=== PATIENT | female | born 1990 | race American Indian/Alaskan Native ===

== ENCOUNTER 2017-01-25 13:31 | Emergency (ER) | payer OTHER ==
[2017-01-25 13:38] VITALS: BMI 21.5
[2017-01-25 13:44] VITALS: BP 148/109; TEMP 99
[2017-01-25] MEDS ORDERED: Sodium Chloride 0.9% 1,000 ML IV STA (14:07)
--- NOTE | 2017-01-25 14:19 | ED PDOC ---
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 Pt has noticeable swelling to her left jaw and when provider asked about recent dental work, pt reports the swelling is always present and states she has "cracked teeth" due to her lupus. Pt is refusing to provide further information until she is given pain medication; [place] [facility] dat[facility]se was consulted and pt's last narcotics prescription was in July. Pt additionally reports she delivered a baby in September 2016 who has since then passed; states she has not seen a doctor since the delivery. Pt refuses to consent for a physical exam. Past Medical History Reviewed: Historical Data, Nursing Documentation, Vital Signs Vital Signs: Last Vital Signs Temp 99 F 01/25/17 13:40 Pulse Resp BP 148/109 H 01/25/17 13:40 Pulse Ox - Medical History PMH: Anemia, Bronchitis, HTN - Surgical History Surgical History: No Surg Hx - Family History Family History: States: Unknown Family Hx - Home Medications Home Medications: Ambulatory Orders Medication Instructions Recorded Oxycodone HCl/Acetaminophen 1 tab PO Q6H PRN #5 tab 02/17/16 [Percocet 325 mg-5 mg] Clindamycin [Cleocin] 300 mg PO BID #14 cap 01/25/17 traMADol [Ultram] 50 mg PO Q4 #10 tab 01/25/17 - Allergies Allergies/Adverse Reactions: Allergies Allergy/AdvReac Type Severity Reaction Status Date / Time ibuprofen [From Motrin] Allergy PAIN Verified 02/17/16 12:48 Iodinated Contrast- Oral and Allergy ITCHING Verified 02/17/16 12:48 IV Dye Review of Systems ROS Statement: Except As Marked, All Systems Reviewed And Found Negative Constitutional: Positive for: Malaise (generalized bodyaches) ENT: Positive for: Mouth Swelling (left sided jaw swelling) Physical Exam - Reviewed Nursing Documentation Reviewed: Yes Vital Signs Reviewed: Yes - Physical Exam Appears: Positive for: Uncomfortable ENT: Positive for: Other ((+) large amount of edema noted over left mandible) Comments: Pt deferred physical exam until she gets treated for pain. - Laboratory Results Result Diagrams: 01/25/17 14:20 01/25/17 14:20 Medical Decision Making Medical Decision Making: IV access established and treatment initiated with IV Morphine and Zofran WBC 7.1 UDS (+) Opiates, Amphetamines and Alcohol repeat BP on re-eval: 138/88 CT Impression: There are induration and flow presumed phlegmon formation on involving the last 2 left second and 3rd maxillary molar teeth with significant left-sided facial cellulitis . Note that the possibility of additional carious teeth involving the left lateral incisor and 2nd cuspid tooth as well right-sided 2nd cuspid and bicuspid contributing to anterior facial swelling not excluded. Findings discussed with emergency room MARYSOL Stafford approximately 5:26 p.m. with written down and read back verification. Pt educated on results and demonstrated full understanding. Started on IV Clinda. Advised to follow up [facility] dentist, dental clinics in area provided to Pt Given RX for Clinda to continue at home return to ED with any concerns Disposition - Clinical Impression Clinical Impression: Dental abscess - Patient ED Disposition Is Patient to be Admitted: No - Disposition Disposition: Routine/Home Disposition Time: 18:56 Condition: STABLE Prescriptions: Clindamycin [Cleocin] 300 mg PO BID #14 cap traMADol [Ultram] 50 mg PO Q4 #10 tab Instructions: Dental Abscess (ED)
[2017-01-25] MEDS ORDERED: Sodium Chloride 0.9% 50 ML IV ONE (14:58)
[2017-01-25] MEDS ORDERED: Iohexol 300 100 ML IJ ONE (14:58)
[2017-01-25 15:04] LABS: BASO % 0.2 % (0.0-2.0); EOS % 0.1 % (0.0-4.0); LYMPH # 2.1 K/uL (1.0-4.3); LYMPH % 29.2 % (20.0-40.0); MEAN CELL VOLUME 87.4 fl (81.0-99.0); MEAN CORPUSCULAR HEMOGLOBIN 29.4 pg (27.0-31.0); MEAN CORPUSCULAR HGB CONC 33.6 g/dL (33.0-37.0); MEAN PLATELET VOLUME 8.1 fl (7.2-11.7); MONO # 0.4 K/uL (0.0-0.8); MONO % 5.4 % (0.0-10.0); NEUT # 4.6 K/uL (1.8-7.0); NEUT % 65.1 % (50.0-75.0); RBC 3.75 Mil/uL (3.80-5.20); RED CELL DISTRIBUTION WIDTH 14.1 % (11.5-14.5); WHITE BLOOD COUNT 7.1 K/uL (4.8-10.8)
[2017-01-25] MEDS ORDERED: Oxycodone/Acetaminophen 5/325 mg Tab ONE (15:07)
[2017-01-25 15:11] LABS: ALB/GLOB RATIO 1.4 (1.0-2.1); ALBUMIN 4.5 g/dL (3.5-5.0); ALT/SGPT 26 U/L (9-52); AST/SGOT 24 U/L (14-36); BLOOD UREA NITROGEN 8 mg/dl (7-17); GFR AFRICAN-AMERICAN > 60; GFR NON-AFRICAN AMERICAN > 60
[2017-01-25] MEDS ORDERED: Oxycodone/Acetaminophen 5/325 mg Tab PO STA (15:11)
[2017-01-25] MEDS ORDERED: DiphenhydrAMINE 50 mg/ml Inj ONE ×2 (15:20→16:44)
[2017-01-25] MEDS ORDERED: DiphenhydrAMINE 50 mg/ml Inj IVP STA ×2 (15:20→16:47)
[2017-01-25 16:21] LABS: SQUAMOUS EPITHIAL 6 /hpf (0-5); URINE BACTERIA RARE (<OCC); URINE BILIRUBIN NEGATIVE (NEGATIVE); URINE BLOOD LARGE (NEGATIVE); URINE CLARITY SLIGHTY-CLOUDY (Clear); URINE COLOR YELLOW (YELLOW); URINE GLUCOSE (UA) NEG (Normal); URINE LEUKOCYTE ESTERASE TRACE Leu/uL (Negative); URINE NITRATE NEGATIVE (NEGATIVE); URINE PROTEIN 30 mg/dL (NEGATIVE); URINE UROBILINOGEN 0.2-1.0 mg/dL (0.2-1.0)
[2017-01-25 16:32] LABS: BARBITURATES, UR NEGATIVE (NEGATIVE); BENZODIAZEPINES, UR NEGATIVE (NEGATIVE); OPIATES, UR POSITIVE (NEGATIVE); PHENCYCLIDINE, UR NEGATIVE (NEGATIVE)
[2017-01-25] MEDS ORDERED: Clindamycin 600 MG in Sodium Chloride 0.9% 100 ML IVPB STA (17:26)
--- NOTE | 2017-01-25 17:29 | CT ---
PROCEDURE: CT scan maxillofacial skeleton 01/25/2017 HISTORY: Rule out dental abscess COMPARISON: No prior TECHNIQUE: Contiguous helical/ transaxial CT images of the maxillofacial bones were obtained following administration of IV contrast. Coronal and sagittal reformats were generated. Intravenous contrast Dose: 75 Omnipaque 300 Radiation dose: Total exam DLP = 737.3 mGy-cm. FINDINGS: Findings: The current study reveals numerous carious teeth. There is a localized area of induration and/or phlegmon formation along the buccal surface adjacent to the last 2nd and 3rd molars of which demonstrate significant at carious changes. Findings are consistent with phlegmon and overlying cellulitis which extends into the soft tissues of the left cheek. There is inflammatory changes seen over the left mandible and anterior maxilla extending anteriorly and inferiorly into the submandibular region and over the symphysis. Note that the possibility of additional carious teeth involving the left lateral incisor and 2nd cuspid tooth as well right-sided 2nd cuspid and bicuspid contributing to anterior facial swelling not excluded. No definitive drainable abscess seen at this time. The visualized paranasal sinuses well-developed and currently well-aerated. There are no fluid levels seen to suggest acute sinusitis . No significant mucoperiosteal inflammatory changes. Orbits and contents unremarkable. Globes intact and lenses appropriately located. There are no retrobulbar masses or collections. Extraocular musculature and optic nerves also unremarkable. Impression: There are induration and flow presumed phlegmon formation on involving the last 2 left second and 3rd maxillary molar teeth with significant left-sided facial cellulitis . Note that the possibility of additional carious teeth involving the left lateral incisor and 2nd cuspid tooth as well right-sided 2nd cuspid and bicuspid contributing to anterior facial swelling not excluded. Findings discussed with emergency room MARYSOL Stafford approximately 5:26 p.m. with written down and read back verification.
== END 2017-01-25 20:00 | disposition home or self-care (01) ==
LOC: H.ER 13:31
DX: R10.9 Unspecified abdominal pain (principal); R52 Pain, unspecified; K12.2 Cellulitis and abscess of mouth

== ENCOUNTER 2017-04-15 21:44 | Emergency (ER) | payer OTHER ==
[2017-04-15 21:45] VITALS: BMI 21.5
[2017-04-15 21:51] VITALS: BP 191/136; PULSE 98; RESP 16; TEMP 97.8; O2SAT 98
[2017-04-15] MEDS ORDERED: Oxycodone/Acetaminophen 5/325 mg Tab PO STA (22:18)
[2017-04-15] MEDS ORDERED: Oxycodone/Acetaminophen 5/325 mg Tab ONE (22:33)
[2017-04-15 22:38] LABS: BASO # 0.1 K/uL (0.0-0.2); BASO % 0.8 % (0.0-2.0); EOS % 0.3 % (0.0-4.0); HEMATOCRIT 36.1 % (34.0-47.0); LYMPH # 3.1 K/uL (1.0-4.3); LYMPH % 45.4 % (20.0-40.0); MEAN CELL VOLUME 87.3 fl (81.0-99.0); MEAN CORPUSCULAR HEMOGLOBIN 28.9 pg (27.0-31.0); MEAN CORPUSCULAR HGB CONC 33.1 g/dL (33.0-37.0); MEAN PLATELET VOLUME 8.3 fl (7.2-11.7); MONO # 0.6 K/uL (0.0-0.8); MONO % 8.2 % (0.0-10.0); NEUT # 3.1 K/uL (1.8-7.0); NEUT % 45.3 % (50.0-75.0); NRBC % 0.1 % (0.0-0.0); RED CELL DISTRIBUTION WIDTH 13.8 % (11.5-14.5); WHITE BLOOD COUNT 6.8 K/uL (4.8-10.8)
--- NOTE | 2017-04-15 22:46 | ED PDOC ---
HPI: General Adult Time Seen by Provider: 04/15/17 21:55 Chief Complaint (Nursing): Weakness/Neurological Deficit Chief Complaint (Provider): Diffuse body pain History Per: Patient History/Exam Limitations: no limitations Onset/Duration Of Symptoms: Days (x 2-3) Current Symptoms Are (Timing): Still Present Additional Complaint(s): Francisco is a 27 y/o female with a history of Lupus, presenting to the ER complaining of diffuse myalgias for the past 2-3 days, worsened today. Patient states she was diagnosed with Lupus 6 months ago but has yet to start any disease modifying agents. States she has been unable to see a mica plate layer hand. Denies any fever, cough, nausea, vomiting, or diarrhea. PMD: [facility] Past Medical History Reviewed: Historical Data, Nursing Documentation, Vital Signs Vital Signs: Last Vital Signs Temp 97.8 F 04/15/17 21:48 Pulse 98 H 04/15/17 21:48 Resp 16 04/15/17 21:48 BP 191/136 H 04/15/17 21:48 Pulse Ox 98 04/16/17 00:00 - Medical History PMH: Anemia, Bronchitis, HTN Other PMH: Lupus - Family History Family History: States: Unknown Family Hx - Social History Current smoker - smoking cessation education provided: No Alcohol: None Drugs: Denies - Home Medications Home Medications: Ambulatory Orders Medication Instructions Recorded Oxycodone HCl/Acetaminophen 1 tab PO Q6H PRN #5 tab 02/17/16 [Percocet 325 mg-5 mg] Clindamycin [Cleocin] 300 mg PO BID #14 cap 01/25/17 Ondansetron ODT [Zofran ODT] 4 mg PO Q6 PRN #10 odt 01/25/17 oxyCODONE/Acetaminophen [Percocet 1 ea PO Q6 PRN #2 tab 01/25/17 5/325 mg Tab] traMADol [Ultram] 50 mg PO Q4 #10 tab 01/25/17 traMADol [Ultram] 50 mg PO Q6 PRN #16 tab 04/15/17 Clindamycin [Cleocin] 300 mg PO BID #28 cap 04/16/17 - Allergies Allergies/Adverse Reactions: Allergies Allergy/AdvReac Type Severity Reaction Status Date / Time ibuprofen [From Motrin] Allergy PAIN Verified 04/15/17 21:47 Iodinated Contrast- Oral and Allergy ITCHING Verified 04/15/17 21:47 IV Dye Review of Systems ROS Statement: Except As Marked, All Systems Reviewed And Found Negative Constitutional: Negative for: Fever Respiratory: Negative for: Cough Gastrointestinal: Negative for: Nausea, Vomiting, Diarrhea Musculoskeletal: Positive for: Other (Diffuse myalgias) Physical Exam - Reviewed Nursing Documentation Reviewed: Yes Vital Signs Reviewed: Yes - Physical Exam Appears: Positive for: Non-toxic, No Acute Distress, Uncomfortable Head Exam: Positive for: ATRAUMATIC, NORMAL INSPECTION, NORMOCEPHALIC Skin: Positive for: Normal Color, Warm, Dry Eye Exam: Positive for: EOMI, Normal appearance, PERRL ENT: Positive for: Normal ENT Inspection, Other (Very poor dentition. History of dental caries per patient) Neck: Positive for: Normal, Painless ROM, Supple Cardiovascular/Chest: Positive for: Regular Rate, Rhythm. Negative for: Murmur Respiratory: Positive for: Normal Breath Sounds. Negative for: Respiratory Distress Gastrointestinal/Abdominal: Positive for: Normal Exam, Soft. Negative for: Tenderness Back: Positive for: Normal Inspection. Negative for: L CVA Tenderness, R CVA Tenderness, Vertebral Tenderness Extremity: Positive for: Normal ROM, Capillary Refill (< 2 sec). Negative for: Tenderness, Pedal Edema, Deformity Neurologic/Psych: Positive for: Alert, Oriented. Negative for: Motor/Sensory Deficits - Laboratory Results Result Diagrams: 04/15/17 22:34 04/15/17 22:34 - ECG O2 Sat by Pulse Oximetry: 98 (RA) Pulse Ox Interpretation: Normal Medical Decision Making Medical Decision Making: Time: 22:17 Initial Impression: 27 year old female with diffuse myalgias in setting of known Lupus Initial Plan: --Ordered labs and EKG --Patient given IV Toradol (10 mg) and PO Percocet (1 tab) --Pending reevaluation --Patient was informed that she will not receive repeat dosages of narcotics. She was also informed of this facility's narcotic policy. Time: 22:52 --Sodium chloride 1000 ml IV at 1000 mls/hr --Added ESR to lab orders Time: 23:30 --Labs reviewed and revealed no clinically significant abnormalities. --Patient informed of benign nature of lab results as well as need for follow up with mica plate layer hand for possible disease modifying agents related to her Lupus. --Patient is medically stable and will be discharged home with Rx for Cleocin and Ultram. Clinical Impression: Muskuloskeletal pain, Dental caries, Lupus by history Scribe Attestation: Documented by Cata Reddy, acting as a scribe for Mark Garcia MD Provider Scribe Attestation: All medical record entries made by the Scribe were at my direction and personally dictated by me. I have reviewed the chart and agree that the record accurately reflects my personal performance of the history, physical exam, medical decision making, and the department course for this patient. I have also personally directed, reviewed, and agree with the discharge instructions and disposition. Disposition - Clinical Impression Clinical Impression: Musculoskeletal pain, Lupus - Patient ED Disposition Is Patient to be Admitted: No Counseled Patient/Family Regarding: Diagnosis, Need For Followup, Rx Given - Disposition Disposition: Routine/Home Disposition Time: 23:30 Condition: STABLE Prescriptions: Clindamycin [Cleocin] 300 mg PO BID #28 cap traMADol [Ultram] 50 mg PO Q6 PRN #16 tab PRN Reason: body aches Instructions: Autoimmune Disease (ED) Forms: [employer] (Kiswahili)
[2017-04-15 22:52] LABS: ALB/GLOB RATIO 1.3 (1.0-2.1); ALCOHOL SERUM < 10 mg/dl (0-10); ALKALINE PHOSPHATASE 67 U/L (38-126); ALT/SGPT 23 U/L (9-52); AST/SGOT 30 U/L (14-36); BILIRUBIN,TOTAL 1.1 mg/dl (0.2-1.3); BLOOD UREA NITROGEN 16 mg/dl (7-17); CALCIUM 9.5 mg/dL (8.4-10.2); CARBON DIOXIDE 23 mmol/L (22-30); CHLORIDE 107 mmol/L (98-107); GFR AFRICAN-AMERICAN > 60; GLUCOSE,RANDOM 94 mg/dL (65-105); POTASSIUM 3.5 MMOL/L (3.6-5.0); SODIUM 142 mmol/l (132-148); TOTAL PROTEIN 8.6 G/DL (6.3-8.2)
[2017-04-15] MEDS ORDERED: Sodium Chloride 0.9% 1,000 ML IV STA (22:52)
[2017-04-15 23:13] LABS: RBC URINE 10 /hpf (0-3); URINE BILIRUBIN NEGATIVE (NEGATIVE); URINE BLOOD LARGE (NEGATIVE); URINE COLOR YELLOW (YELLOW); URINE GLUCOSE (UA) NEG (Normal); URINE KETONE TRACE mg/dL (NEGATIVE); URINE LEUKOCYTE ESTERASE NEG Leu/uL (Negative); URINE PROTEIN 30 mg/dL (NEGATIVE); URINE UROBILINOGEN 0.2-1.0 mg/dL (0.2-1.0); WBC URINE 2 /hpf (0-5)
== END 2017-04-16 00:36 | disposition home or self-care (01) ==
LOC: H.ER 21:44
DX: M79.1 Myalgia (principal); M32.9 Systemic lupus erythematosus, unspecified; I10 Essential (primary) hypertension
CPT/HCPCS: 80053; 80320; 80324; 80345; 80346; 80349; 80353; 80358; 80361; 81003; 81025; 82550; 83992; 85025; 85651; 96374; 99284; J1885; J7040

== ENCOUNTER 2017-06-14 18:45 | Emergency (ER) | payer OTHER ==
[2017-06-14 18:45] VITALS: BMI 21.5
[2017-06-14 18:58] VITALS: BP 153/111; PULSE 87; RESP 16; TEMP 96.4; O2SAT 96
--- NOTE | 2017-06-14 20:03 | ED PDOC ---
HPI: Abdomen Time Seen by Provider: 06/14/17 19:00 Chief Complaint (Nursing): Abdominal Pain Chief Complaint (Provider): Right Flank and Right Upper Abdominal Pain History Per: Patient History/Exam Limitations: no limitations Onset/Duration Of Symptoms: Days (x4 days) Outside of [place] travel?: No Current Symptoms Are (Timing): Still Present Additional Complaint(s): Francisco Eason, a 27 year old female, with a past medical history lupus, asthma , anemia and hypertension presents to the ED complaining of right flank and right upper abdominal pain x4 days. The patient reports that her symptoms are associated with diffuse myalgias, generalized malaise, fatigue and chills. She states t hat her current symptoms are consistent with previous episodes of lupus exacerbation although the abdominal pain is new. Patient also notes some dysuria, frequency, cough productive of phlegm and gum pain that is due to severe gingival disease. She reports that she has not taken anything for pain. The patient also states that she has not seen a manager hospice due to insurance issues. Patient has been to ER for similar complaints due to her lupus exacerbation PMD: Dr. Hong Kingsley Abnormal Vaginal Bleeding: No Past Medical History Reviewed: Historical Data, Nursing Documentation, Vital Signs Vital Signs: Last Vital Signs Temp 96.4 F L 06/14/17 18:52 Pulse 87 06/14/17 18:52 Resp 16 06/14/17 18:52 BP 153/111 H 06/14/17 18:52 Pulse Ox 96 06/14/17 20:23 - Medical History PMH: Anemia, Bronchitis, HTN Other PMH: lupus - Surgical History Other surgeries: abscess in right upper back - Family History Family History: States: Hypertension - Social History Current smoker - smoking cessation education provided: Yes (on rare occasions) Ex-Smoker (has not smoked in the last 12 months): No Alcohol: None Drugs: Cannabis - Home Medications Home Medications: Ambulatory Orders Medication Instructions Recorded Oxycodone HCl/Acetaminophen 1 tab PO Q6H PRN #5 tab 02/17/16 [Percocet 325 mg-5 mg] Clindamycin [Cleocin] 300 mg PO BID #14 cap 01/25/17 Ondansetron ODT [Zofran ODT] 4 mg PO Q6 PRN #10 odt 01/25/17 oxyCODONE/Acetaminophen [Percocet 1 ea PO Q6 PRN #2 tab 01/25/17 5/325 mg Tab] traMADol [Ultram] 50 mg PO Q4 #10 tab 01/25/17 traMADol [Ultram] 50 mg PO Q6 PRN #16 tab 04/15/17 Clindamycin [Cleocin] 300 mg PO BID #28 cap 04/16/17 - Allergies Allergies/Adverse Reactions: Allergies Allergy/AdvReac Type Severity Reaction Status Date / Time ibuprofen [From Motrin] Allergy PAIN Verified 04/15/17 21:47 Iodinated Contrast- Oral and Allergy ITCHING Verified 04/15/17 21:47 IV Dye Review of Systems ROS Statement: Except As Marked, All Systems Reviewed And Found Negative (and as per HPI) Constitutional: Positive for: Chills, Malaise, Other (fatigue; diffuse myalgia) Gastrointestinal: Positive for: Abdominal Pain (right upper abdominal pain) Musculoskeletal: Positive for: Back Pain (right flank pain) Physical Exam - Reviewed Nursing Documentation Reviewed: Yes Vital Signs Reviewed: Yes - Physical Exam Appears: Positive for: Non-toxic, No Acute Distress Head Exam: Positive for: ATRAUMATIC, NORMOCEPHALIC Skin: Positive for: Warm, Dry Eye Exam: Positive for: EOMI, PERRL ENT: Negative for: Pharyngeal Erythema, Tonsillar Exudate Neck: Positive for: Painless ROM, Supple Cardiovascular/Chest: Positive for: Regular Rate, Rhythm, Chest Non Tender. Negative for: Murmur Respiratory: Positive for: Normal Breath Sounds. Negative for: Wheezing, Respiratory Distress Gastrointestinal/Abdominal: Positive for: Soft, Tenderness (RUQ). Negative for : Mass, Distended, Guarding, Rebound Back: Positive for: R CVA Tenderness. Negative for: Vertebral Tenderness Extremity: Positive for: Normal ROM. Negative for: Deformity Lymphatic: Negative for: Adenopathy Neurologic/Psych: Positive for: Alert. Negative for: Motor/Sensory Deficits - Laboratory Results Result Diagrams: 06/14/17 19:50 06/14/17 19:50 - ECG O2 Sat by Pulse Oximetry: 96 (RA) Pulse Ox Interpretation: Normal Medical Decision Making Medical Decision Makin Initial Plan 27 y/o female presenting with right flank pain Differentials including and not limited too: Pyelonephritis, Cholelithiasis, Gallbaladder disease, Renal Colic, Musculoskeletal pain, Lupus exacerbation Initial Plan: * CMP * Drug screen * Lactic Acid- plasma * Lipase * Magnesium * Phosphorous * Upreg * Udip * CBC * Chest x-ray * Tylenol 975mg PO * Blood Culture * Urine Culture * Reevaluation Reviewed patient's narcotic prescriptions on [facility] database patient was prescribed percocet on June 11 by dentist and also May 08 by another dentist as well as tramadol after last visit here and 4 other percocet prescription this year by various medical providers. 8p Pt expressed anger about being given tylenol and tramadol. Explained to pt pain management policy and reviewed previous narcotic prescription with patient. Advised that she would not be getting any other medications unless deemed necessary by ER workup. 855p Informed by RN that pt walked out. She had pulled her own IV out. No US performed and labs with no emergently significant abnormalities. _ Scribe Attestation Documented by Iqra Bob acting as a scribe for Talia Fontana MD. Provider Attestation All medical record entries made by the Scribe were at my direction and personally dictated by me. I have reviewed the chart and agree that the record accurately reflects my personal performance of the history, physical exam, medical decision making, and the department course for this patient. I have also personally directed, reviewed, and agree with the discharge instructions and disposition. Disposition - Clinical Impression Clinical Impression: Abdominal pain - Disposition Disposition: Eloped Disposition Time: 20:55 Condition: UNKNOWN
[2017-06-14 20:05] LABS: ALKALINE PHOSPHATASE 68 U/L (38-126); ALT/SGPT 26 U/L (9-52); AST/SGOT 24 U/L (14-36); BILIRUBIN,TOTAL 0.5 mg/dl (0.2-1.3); BLOOD UREA NITROGEN 13 mg/dl (7-17); CALCIUM 8.9 mg/dL (8.4-10.2); CARBON DIOXIDE 25 mmol/L (22-30); CHLORIDE 108 mmol/L (98-107); GFR AFRICAN-AMERICAN > 60; GLUCOSE,RANDOM 103 mg/dL (65-105); LIPASE 20 U/L (23-300); PHOSPHOROUS 3.4 mg/dl (2.5-4.5); POTASSIUM 3.6 MMOL/L (3.6-5.0); SODIUM 145 mmol/l (132-148); TOTAL PROTEIN 8.4 G/DL (6.3-8.2)
[2017-06-14 20:15] LABS: ALB/GLOB RATIO 1.2 (1.0-2.1)
[2017-06-14 20:17] LABS: RBC URINE 6 /hpf (0-3); URINE BACTERIA RARE (<OCC); URINE BILIRUBIN NEGATIVE (NEGATIVE); URINE BLOOD NEGATIVE (NEGATIVE); URINE COLOR YELLOW (YELLOW); URINE GLUCOSE (UA) NEG (Normal); URINE KETONE NEGATIVE (NEGATIVE); URINE LEUKOCYTE ESTERASE MOD Leu/uL (Negative); URINE PROTEIN 100 mg/dL (NEGATIVE); URINE UROBILINOGEN 0.2-1.0 mg/dL (0.2-1.0); WBC URINE 8 /hpf (0-5)
[2017-06-14 20:30] LABS: BASO % 0.2 % (0.0-2.0); EOS % 0.3 % (0.0-4.0); HEMATOCRIT 36.1 % (34.0-47.0); LYMPH # 2.2 K/uL (1.0-4.3); LYMPH % 38.7 % (20.0-40.0); MEAN CELL VOLUME 89.2 fl (81.0-99.0); MEAN CORPUSCULAR HEMOGLOBIN 29.3 pg (27.0-31.0); MEAN CORPUSCULAR HGB CONC 32.9 g/dL (33.0-37.0); MEAN PLATELET VOLUME 8.5 fl (7.2-11.7); MONO # 0.4 K/uL (0.0-0.8); MONO % 7.1 % (0.0-10.0); NEUT # 3.1 K/uL (1.8-7.0); NEUT % 53.7 % (50.0-75.0); NRBC % 0.1 % (0.0-0.0); RED CELL DISTRIBUTION WIDTH 13.7 % (11.5-14.5); WHITE BLOOD COUNT 5.7 K/uL (4.8-10.8)
== END 2017-06-14 20:51 | disposition short-term general hospital (02) ==
LOC: H.ER 18:45
DX: R10.9 Unspecified abdominal pain (principal); I10 Essential (primary) hypertension; F17.210 Nicotine dependence, cigarettes, uncomplicated

== ENCOUNTER 2017-11-22 17:48 | Emergency (ER) | payer OTHER ==
[2017-11-22 17:48] VITALS: BMI 21.5
[2017-11-22 17:55] VITALS: BP 109/72; PULSE 64; RESP 18; TEMP 97.8; O2SAT 97
[2017-11-22] MEDS ORDERED: Sodium Chloride 0.9% 1,000 ML IV STA (18:34)
[2017-11-22 18:52] LABS: BASO % 0.6 % (0.0-2.0); EOS % 0.5 % (0.0-4.0); HEMOGLOBIN 12.8 g/dL (12.0-16.0); LYMPH # 2.5 K/uL (1.0-4.3); LYMPH % 63.8 % (20.0-40.0); MEAN CORPUSCULAR HEMOGLOBIN 30.3 pg (27.0-31.0); MEAN PLATELET VOLUME 8.3 fl (7.2-11.7); MONO # 0.3 K/uL (0.0-0.8); MONO % 7.7 % (0.0-10.0); NEUT # 1.1 K/uL (1.8-7.0); NEUT % 27.4 % (50.0-75.0); NRBC % 0.1 % (0.0-0.0); RBC 4.22 Mil/uL (3.80-5.20); RED CELL DISTRIBUTION WIDTH 13.8 % (11.5-14.5); WHITE BLOOD COUNT 3.9 K/uL (4.8-10.8)
--- NOTE | 2017-11-22 18:52 | ED PDOC ---
HPI: General Adult Time Seen by Provider: 11/22/17 18:15 Chief Complaint (Nursing): Weakness/Neurological Deficit Chief Complaint (Provider): Body Aches History Per: Patient History/Exam Limitations: no limitations Onset/Duration Of Symptoms: Days (x2) Have you had recent travel within the past 21 days to any of the following countries: [place], [place], [place] or [place]?: No Current Symptoms Are (Timing): Still Present Severity: None Additional Complaint(s): 27 year old female with a past medical history of lupus presents to the emergency department to be evaluated for body aches x2 days. The patient reports that this is the same feeling she experiences when her lupus flares. She states that she has taken no medications for pain. In addition, she states that she vomited a few times and also feels weak. Denies fever, chest pain, difficulty breathing, drug/alcohol use. Patient reports that she is supposed to be taking medications for her lupus but she is currently not taking anything. Of note: patient during interview requested pain medication and agreed to give urine but does not want to give blood work. PMD: FAMILY PROVIDER,NO Past Medical History Reviewed: Historical Data, Nursing Documentation, Vital Signs Vital Signs: Last Vital Signs Temp 97.8 F 11/22/17 17:53 Pulse 64 11/22/17 17:53 Resp 18 11/22/17 17:53 BP 109/72 11/22/17 17:53 Pulse Ox 97 11/23/17 05:17 - Medical History PMH: Anemia, Bronchitis, HTN Other PMH: Lupus - Surgical History Surgical History: No Surg Hx - Family History Family History: States: Unknown Family Hx, Hypertension - Home Medications Home Medications: Ambulatory Orders Medication Instructions Recorded Oxycodone HCl/Acetaminophen 1 tab PO Q6H PRN #5 tab 02/17/16 [Percocet 325 mg-5 mg] Clindamycin [Cleocin] 300 mg PO BID #14 cap 01/25/17 Ondansetron ODT [Zofran ODT] 4 mg PO Q6 PRN #10 odt 01/25/17 oxyCODONE/Acetaminophen [Percocet 1 ea PO Q6 PRN #2 tab 01/25/17 5/325 mg Tab] traMADol [Ultram] 50 mg PO Q4 #10 tab 07/02/17 traMADol [Ultram] 50 mg PO Q6 PRN #16 tab 04/15/17 Clindamycin [Cleocin] 300 mg PO BID #28 cap 04/16/17 Methylprednisolone [Medrol Dose 4 mg PO DAILY #21 mg 11/22/17 Pack (21 tabs)] Nitrofurantoin Macrocrystals 100 mg PO BID #14 cap 11/22/17 [Macrobid] - Allergies Allergies/Adverse Reactions: Allergies Allergy/AdvReac Type Severity Reaction Status Date / Time ibuprofen [From Motrin] Allergy PAIN Verified 11/22/17 17:53 Iodinated Contrast- Oral and Allergy ITCHING Verified 11/22/17 17:53 IV Dye Review of Systems ROS Statement: Except As Marked, All Systems Reviewed And Found Negative Constitutional: Positive for: Weakness, Other (body aches). Negative for: Fever Cardiovascular: Negative for: Chest Pain Respiratory: Negative for: Shortness of Breath Gastrointestinal: Positive for: Vomiting Physical Exam - Reviewed Nursing Documentation Reviewed: Yes Vital Signs Reviewed: Yes - Physical Exam Appears: Positive for: Non-toxic, No Acute Distress Head Exam: Positive for: ATRAUMATIC, NORMAL INSPECTION, NORMOCEPHALIC Skin: Positive for: Normal Color, Warm, Dry. Negative for: Rash Eye Exam: Positive for: Normal appearance, EOMI, PERRL. Negative for: Nystagmus ENT: Positive for: Other (Mucous membranes dry). Negative for: Nasal Congestion , Pharyngeal Erythema, Tonsillar Swelling Neck: Positive for: Normal, Painless ROM, Supple Cardiovascular/Chest: Positive for: Regular Rate, Rhythm, Chest Non Tender. Negative for: Tachycardia Respiratory: Positive for: Normal Breath Sounds. Negative for: Rales, Rhonchi, Wheezing, Respiratory Distress Gastrointestinal/Abdominal: Positive for: Normal Exam, Bowel Sounds, Soft. Negative for: Tenderness, Mass, Guarding, Rebound Back: Positive for: Normal Inspection. Negative for: L CVA Tenderness, R CVA Tenderness Extremity: Positive for: Normal ROM. Negative for: Tenderness, Deformity, Swelling Neurologic/Psych: Positive for: Alert, Oriented, Gait - Laboratory Results Result Diagrams: 11/22/17 18:48 11/22/17 18:48 - ECG O2 Sat by Pulse Oximetry: 97 (RA) Pulse Ox Interpretation: Normal Medical Decision Making Medical Decision Makin Initial impression 27 year old female presenting with body aches Differentials: Lupus Flare, Dehydration, Urinary Tract Infection Initial Plan: * Alcohol Serum * BMP * Drug Screen * Lipase * Upreg * Udip * CBC * ESR * NS 1000 mls IV 1000mls/hr * Tylenol 650mg PO * Ultram 50mg PO * Zofran 4mg IV * Urine culture * Reevaluation Documented by ScribenameIqra Bob acting as a scribe for Aguila Everett MD. All medical record entries made by the Scribe were at my direction and personally dictated by me. I have reviewed the chart and agree that the record accurately reflects my personal performance of the history, physical exam, medical decision making, and the department course for this patient. I have also personally directed, reviewed, and agree with the discharge instructions and disposition. Disposition - Clinical Impression Clinical Impression: UTI (urinary tract infection) - Patient ED Disposition Is Patient to be Admitted: Transfer of Care Counseled Patient/Family Regarding: Studies Performed, Diagnosis - Disposition Disposition: Transfer of Care Disposition Time: 19:00 Condition: STABLE Additional Instructions: follow up with your primary doctor in 1-2 days return to the ED with any worsening or concerning symptoms Prescriptions: Methylprednisolone [Medrol Dose Pack (21 tabs)] 4 mg PO DAILY #21 mg Nitrofurantoin Macrocrystals [Macrobid] 100 mg PO BID #14 cap Instructions: Urinary Tract Infection, Adult (DC) Patient Signed Over To: Jacques Khan
[2017-11-22 19:01] LABS: BLOOD UREA NITROGEN 18 mg/dl (7-17); CALCIUM 9.6 mg/dL (8.4-10.2); GFR AFRICAN-AMERICAN > 60; GFR NON-AFRICAN AMERICAN 54; LIPASE 24 U/L (23-300)
[2017-11-22 19:09] LABS: BARBITURATES, UR NEGATIVE (NEGATIVE); BENZODIAZEPINES, UR NEGATIVE (NEGATIVE); OPIATES, UR NEGATIVE (NEGATIVE); PHENCYCLIDINE, UR NEGATIVE (NEGATIVE)
[2017-11-22] MEDS ORDERED: cefTRIAXone (Rocephin) 1 gm Inj ONE (19:24)
--- NOTE | 2017-11-22 19:51 | ED PDOC ---
- Laboratory Results Result Diagrams: 11/22/17 18:48 11/22/17 18:48 - ECG O2 Sat by Pulse Oximetry: 97 (RA) Pulse Ox Interpretation: Normal Medical Decision Making Medical Decision Making: Patient signed out to provider at 1900 pending reevaluation. on reevaluation pt sleeping comfortably in no distress. pt tolerated po. dx uti given macrobid rx as well as medrol pack for the inflammation from the RA. Documented by Iqra Cox acting as a scribe for Jacques Khan MD. All medical record entries made by the Scribe were at my direction and personally dictated by me. I have reviewed the chart and agree that the record accurately reflects my personal performance of the history, physical exam, medical decision making, and the department course for this patient. I have also personally directed, reviewed, and agree with the discharge instructions and disposition. Disposition Counseled Patient/Family Regarding: Studies Performed, Diagnosis, Need For Followup - Clinical Impression Clinical Impression: UTI (urinary tract infection) - POA Present On Arrival: None - Disposition Disposition: Routine/Home Disposition Time: 20:45 Condition: IMPROVED Additional Instructions: follow up with your primary doctor in 1-2 days return to the ED with any worsening or concerning symptoms Prescriptions: Methylprednisolone [Medrol Dose Pack (21 tabs)] 4 mg PO DAILY #21 mg Nitrofurantoin Macrocrystals [Macrobid] 100 mg PO BID #14 cap Instructions: Urinary Tract Infection, Adult (DC) Forms: [employer] (Bermudian)
[2017-11-22] MEDS ORDERED: Potassium Chloride 20 mEq ER Tab PO ONE ×2 (20:30→20:40)
== END 2017-11-22 21:20 | disposition home or self-care (01) ==
LOC: H.ER 17:48
DX: N39.0 Urinary tract infection, site not specified (principal); M32.9 Systemic lupus erythematosus, unspecified; I10 Essential (primary) hypertension; Z88.6 Allergy status to analgesic agent
CPT/HCPCS: 80048; 80320; 80324; 80345; 80346; 80349; 80353; 80358; 80361; 81025; 83690; 83992; 85025; 85651; 87086; 87181; 96374; 96375; 99285; J0696; J2765; J2930; J7040

== ENCOUNTER 2017-11-27 14:12 | Emergency (ER) | payer OTHER ==
[2017-11-27 14:12] VITALS: BMI 21.5
[2017-11-27 14:29] VITALS: TEMP 98.4; O2SAT 99
--- NOTE | 2017-11-27 15:56 | ED PDOC ---
HPI: Back Time Seen by Provider: 11/27/17 15:24 Chief Complaint (Nursing): Back Pain Chief Complaint (Provider): Low back pain History Per: Patient History/Exam Limitations: no limitations Onset/Duration Of Symptoms: Days Current Symptoms Are (Timing): Still Present Quality Of Discomfort: Dull Additional Complaint(s): 27 yo female with history of Lupus presents with low back pain. Pt states she was given Rx of medrol and states it is not really helping. PT denies fall or trauma. Pt has no yet seen a recreation aide for lupus. Pt states she will see her PMD thursday but would like something for pain. Pt states she has taken tramadol in the past. Pt states she is taking antibiotic for UTI. Past Medical History Reviewed: Historical Data, Nursing Documentation, Vital Signs Vital Signs: Last Vital Signs Temp 98.4 F 11/27/17 14:24 Pulse 70 11/27/17 14:24 Resp 16 11/27/17 14:24 BP 138/100 H 11/27/17 14:24 Pulse Ox 99 11/27/17 14:24 - Medical History PMH: Anemia, Bronchitis, HTN - Family History Family History: States: Unknown Family Hx, Hypertension - Living Arrangements Living Arrangements: With Family - Social History Current smoker - smoking cessation education provided: No - Home Medications Home Medications: Ambulatory Orders Medication Instructions Recorded Oxycodone HCl/Acetaminophen 1 tab PO Q6H PRN #5 tab 02/17/16 [Percocet 325 mg-5 mg] Clindamycin [Cleocin] 300 mg PO BID #14 cap 01/25/17 Ondansetron ODT [Zofran ODT] 4 mg PO Q6 PRN #10 odt 01/25/17 oxyCODONE/Acetaminophen [Percocet 1 ea PO Q6 PRN #2 tab 01/25/17 5/325 mg Tab] traMADol [Ultram] 50 mg PO Q4 #10 tab 01/25/17 traMADol [Ultram] 50 mg PO Q6 PRN #16 tab 04/15/17 Clindamycin [Cleocin] 300 mg PO BID #28 cap 04/16/17 Methylprednisolone [Medrol Dose 4 mg PO DAILY #21 mg 11/22/17 Pack (21 tabs)] Nitrofurantoin Macrocrystals 100 mg PO BID #14 cap 11/22/17 [Macrobid] traMADol [Ultram] 50 mg PO Q6H PRN #5 tab 11/27/17 - Allergies Allergies/Adverse Reactions: Allergies Allergy/AdvReac Type Severity Reaction Status Date / Time ibuprofen [From Motrin] Allergy PAIN Verified 11/22/17 17:53 Iodinated Contrast- Oral and Allergy ITCHING Verified 11/22/17 17:53 IV Dye Review of Systems ROS Statement: Except As Marked, All Systems Reviewed And Found Negative Constitutional: Negative for: Fever, Chills Musculoskeletal: Positive for: Back Pain Physical Exam - Reviewed Nursing Documentation Reviewed: Yes Vital Signs Reviewed: Yes - Physical Exam Appears: Positive for: Well, Non-toxic, No Acute Distress Head Exam: Positive for: ATRAUMATIC, NORMAL INSPECTION, NORMOCEPHALIC Skin: Positive for: Normal Color, Warm, DRY Eye Exam: Positive for: Normal appearance ENT: Positive for: Normal ENT Inspection Neck: Positive for: Normal, Painless ROM Cardiovascular/Chest: Positive for: Regular Rate, Rhythm Respiratory: Positive for: Normal Breath Sounds. Negative for: Accessory Muscle Use Back: Positive for: Normal Inspection Extremity: Positive for: Normal ROM Neurologic/Psych: Positive for: Alert, Oriented - Laboratory Results Result Diagrams: 11/27/17 16:09 11/27/17 16:09 - ECG O2 Sat by Pulse Oximetry: 99 Disposition - Clinical Impression Clinical Impression: Back pain - Patient ED Disposition Is Patient to be Admitted: No Counseled Patient/Family Regarding: Diagnosis, Need For Followup, Rx Given - Disposition Disposition: Routine/Home Disposition Time: 16:50 Condition: STABLE Prescriptions: traMADol [Ultram] 50 mg PO Q6H PRN #5 tab PRN Reason: Pain Instructions: Low Back Pain (DC) Forms: [employer] (Hebrew)
[2017-11-27 16:20] LABS: BASO % 0.5 % (0.0-2.0); EOS % 0.1 % (0.0-4.0); HEMOGLOBIN 13.1 g/dL (12.0-16.0); LYMPH # 1.6 K/uL (1.0-4.3); LYMPH % 28.5 % (20.0-40.0); MEAN CELL VOLUME 89.6 fl (81.0-99.0); MEAN CORPUSCULAR HEMOGLOBIN 29.7 pg (27.0-31.0); MEAN CORPUSCULAR HGB CONC 33.1 g/dL (33.0-37.0); MEAN PLATELET VOLUME 8.7 fl (7.2-11.7); MONO # 0.2 K/uL (0.0-0.8); MONO % 2.9 % (0.0-10.0); NEUT # 3.7 K/uL (1.8-7.0); RBC 4.41 Mil/uL (3.80-5.20); RED CELL DISTRIBUTION WIDTH 13.4 % (11.5-14.5); WHITE BLOOD COUNT 5.5 K/uL (4.8-10.8)
[2017-11-27 16:25] LABS: ALB/GLOB RATIO 1.3 (1.0-2.1); ALBUMIN 4.9 g/dL (3.5-5.0); ALT/SGPT 23 U/L (9-52); AST/SGOT 22 U/L (14-36); BLOOD UREA NITROGEN 15 mg/dl (7-17); CALCIUM 9.6 mg/dL (8.4-10.2); GFR AFRICAN-AMERICAN > 60; GFR NON-AFRICAN AMERICAN > 60; SQUAMOUS EPITHIAL 9 /hpf (0-5); URINE BILIRUBIN NEGATIVE (NEGATIVE); URINE BLOOD NEGATIVE (NEGATIVE); URINE CLARITY SLIGHTY-CLOUDY (Clear); URINE COLOR AMBER (YELLOW); URINE GLUCOSE (UA) NEG (Normal); URINE LEUKOCYTE ESTERASE NEG Leu/uL (Negative); URINE PROTEIN 30 mg/dL (NEGATIVE)
[2017-11-27 17:29] VITALS: BP 137/89; PULSE 76; RESP 18
== END 2017-11-27 17:05 | disposition home or self-care (01) ==
LOC: H.ER 14:12
DX: M54.9 Dorsalgia, unspecified (principal); I10 Essential (primary) hypertension; M32.9 Systemic lupus erythematosus, unspecified; Z88.6 Allergy status to analgesic agent

== ENCOUNTER 2018-06-24 04:49 | Inpatient (IN) | payer OTHER ==
[2018-06-24 04:49] VITALS: BMI 21.5
[2018-06-24] MEDS ORDERED: Morphine 4 MG/ML VIAL IVP ONE (05:33)
[2018-06-24] MEDS ORDERED: Sodium Chloride 0.9% 1,000 ML IV STA ×3 (05:33→10:04)
[2018-06-24] MEDS ORDERED: Morphine 4 MG/ML VIAL ONE ×3 (05:40→20:25)
[2018-06-24 06:14] LABS: BASO % 0.3 % (0.0-2.0); EOS % 0.1 % (0.0-4.0); LYMPH # 1.2 K/uL (1.0-4.3); LYMPH % 17.5 % (20.0-40.0); MEAN CELL VOLUME 93.4 fl (81.0-99.0); MEAN CORPUSCULAR HEMOGLOBIN 31.2 pg (27.0-31.0); MEAN CORPUSCULAR HGB CONC 33.4 g/dL (33.0-37.0); MEAN PLATELET VOLUME 8.6 fl (7.2-11.7); MONO # 0.5 K/uL (0.0-0.8); NEUT # 5.2 K/uL (1.8-7.0); NEUT % 75.1 % (50.0-75.0); NRBC % 0.3 % (0.0-0.0); RBC 3.84 Mil/uL (3.80-5.20); RED CELL DISTRIBUTION WIDTH 12.5 % (11.5-14.5); WHITE BLOOD COUNT 6.9 K/uL (4.8-10.8)
[2018-06-24 06:24] LABS: ALB/GLOB RATIO 1.2 (1.0-2.1); ALBUMIN 4.5 g/dL (3.5-5.0); ALT/SGPT 16 U/L (9-52); AST/SGOT 21 U/L (14-36); BLOOD UREA NITROGEN 19 mg/dl (7-17); CALCIUM 9.2 mg/dL (8.4-10.2); GFR NON-AFRICAN AMERICAN > 60
[2018-06-24 06:27] LABS: SQUAMOUS EPITHIAL 1 /hpf (0-5); URINE BACTERIA MANY (<OCC); URINE BILIRUBIN NEGATIVE (NEGATIVE); URINE BLOOD MODERATE (NEGATIVE); URINE CLARITY CLOUDY (Clear); URINE COLOR YELLOW (YELLOW); URINE GLUCOSE (UA) NEG (Normal); URINE LEUKOCYTE ESTERASE LARGE Leu/uL (Negative); URINE PROTEIN 100 mg/dL (NEGATIVE); URINE UROBILINOGEN 0.2-1.0 mg/dL (0.2-1.0)
--- NOTE | 2018-06-24 06:50 | ED PDOC ---
HPI: Abdomen Time Seen by Provider: 06/24/18 04:57 Chief Complaint (Nursing): Abdominal Pain Chief Complaint (Provider): Right Flank Pain History Per: Patient History/Exam Limitations: no limitations Onset/Duration Of Symptoms: Days (x2) Current Symptoms Are (Timing): Still Present Additional Complaint(s): 28 year old female with pmhx of Lupus and previous kidney infections presents to the ED for evaluation of right flank pain associated with fever, chills, and nausea for the past two days. Denies vomiting or diarrhea. Additionally, patient denies being on any medications for her Lupus and correia not follow up with a doctor regularly for it. PMD: Dr Varela in [place] according to pt Past Medical History Reviewed: Historical Data, Nursing Documentation, Vital Signs Vital Signs: Last Vital Signs Temp 100.6 F H 06/24/18 04:54 Pulse 105 H 06/24/18 04:54 Resp 18 06/24/18 04:54 BP 172/115 H 06/24/18 04:54 Pulse Ox 99 06/24/18 04:54 - Medical History PMH: Anemia, Bronchitis, HTN Other PMH: Lupus - Surgical History Surgical History: No Surg Hx - Family History Family History: States: Hypertension - Social History Current smoker - smoking cessation education provided: No Alcohol: None Drugs: Denies - Home Medications Home Medications: Ambulatory Orders Medication Instructions Recorded RX: Famotidine [Pepcid] 20 mg PO DAILY 06/24/18 RX: Lisinopril [Zestril] 20 mg PO DAILY 06/24/18 RX: amLODIPine [Norvasc] 10 mg PO DAILY 06/24/18 Cefpodoxime [Vantin] 200 mg PO BID 14 Days tab 06/27/18 - Allergies Allergies/Adverse Reactions: Allergies Allergy/AdvReac Type Severity Reaction Status Date / Time ciprofloxacin [From Cipro] Allergy ITCHING Verified 06/27/18 17:31 ibuprofen [From Motrin] Allergy PAIN Verified 11/22/17 17:53 Iodinated Contrast- Oral and Allergy ITCHING Verified 11/22/17 17:53 IV Dye Review of Systems ROS Statement: Except As Marked, All Systems Reviewed And Found Negative Constitutional: Positive for: Fever, Chills Gastrointestinal: Positive for: Nausea. Negative for: Vomiting, Diarrhea Musculoskeletal: Positive for: Other (right flank pain) Physical Exam - Reviewed Nursing Documentation Reviewed: Yes Vital Signs Reviewed: Yes - Physical Exam Appears: Positive for: Uncomfortable Head Exam: Positive for: ATRAUMATIC, NORMOCEPHALIC Skin: Positive for: Normal Color, Warm, Dry Eye Exam: Positive for: Normal appearance ENT: Positive for: Normal ENT Inspection Neck: Positive for: Normal, Painless ROM, Supple Cardiovascular/Chest: Positive for: Regular Rate, Rhythm Respiratory: Positive for: Normal Breath Sounds. Negative for: Respiratory Distress Gastrointestinal/Abdominal: Positive for: Normal Exam, Soft. Negative for: Tenderness Back: Positive for: R CVA Tenderness. Negative for: L CVA Tenderness, Vertebral Tenderness Extremity: Positive for: Normal ROM Neurologic/Psych: Positive for: Alert, Oriented (x3) - Laboratory Results Result Diagrams: 06/27/18 05:25 06/27/18 05:25 - ECG O2 Sat by Pulse Oximetry: 99 (RA) Pulse Ox Interpretation: Normal Medical Decision Making Medical Decision Making: Time: 532 Initial Impression: 28 year old female with right flank pain in setting of known Lupus Initial Plan: --CT abd/pelvis w/o contrast --CMP --Lact acid --U-dip --U-preg --CBC with differential --Morphine 4mg IV --IV fluids --Rocephin IVPB --Blood culture --Urine culture --Urinalysis 0700 Patient care endorsed from this provider to Dr. Viera pending workup and reevaluation. Scribe Attestation: Documented by Farideh Hagan, acting as a scribe for Mark Garcia MD. Provider Scribe Attestation: All medical record entries made by the Scribe were at my direction and personally dictated by me. I have reviewed the chart and agree that the record accurately reflects my personal performance of the history, physical exam, medical decision making, and the department course for this patient. I have also personally directed, reviewed, and agree with the discharge instructions and disposition. Disposition - Clinical Impression Clinical Impression: Pyelonephritis - Disposition Disposition: Transfer of Care Disposition Time: 07:00 Condition: FAIR Patient Signed Over To: Francesca Viera
--- NOTE | 2018-06-24 07:50 | ED PDOC ---
- Laboratory Results Result Diagrams: 06/27/18 05:25 06/27/18 05:25 - ECG O2 Sat by Pulse Oximetry: 99 (RA) Pulse Ox Interpretation: Normal Medical Decision Making Medical Decision Makin:00 Care endorsed to this provider by Dr. Garcia Patient presented with fever, flank pain and dysuria; likely pyelonephritis Pending CT for renal evaluation Will most likely be discharged home with antibiotics 09:40 Abd/ Pelvis CT FINDINGS: LOWER THORAX: Unremarkable. LIVER: Unremarkable. No gross lesion or ductal dilatation. GALLBLADDER AND BILE DUCTS: Unremarkable. PANCREAS: Unremarkable. No gross lesion or ductal dilatation. SPLEEN: Unremarkable. ADRENALS: Unremarkable. No mass. KIDNEYS AND URETERS: Multiple punctate nonobstructing right renal calculi. Punctate nonobstructing left upper pole renal calculus. No hydronephrosis. No renal mass. No hydroureter or ureteral calculus. VASCULATURE: Unremarkable. No aortic aneurysm. No aortic atherosclerotic calcification or mural plaque present. BOWEL: Unremarkable. No obstruction. No gross mural thickening. APPENDIX: Unremarkable. Normal appendix. PERITONEUM: Unremarkable. No free fluid. No free air. LYMPH NODES: Unremarkable. No enlarged lymph nodes. BLADDER: Unremarkable. REPRODUCTIVE: Normal uterus. Right adnexal cyst, 3.5 cm, likely ovarian. Consider correlation with ultrasound examination. BONES: No acute fracture. OTHER FINDINGS: None. IMPRESSION: Punctate bilateral nonobstructing renal calculi, right greater than left. No evidence of urinary tract obstruction. 3.5 cm right adnexal cystic structure, likely ovarian cyst. Consider correlation with ultrasound examination. No additional abnormality. 10:01 Patient is requiring high doses of IV pain control at this time. Fever has returned. She continues to feel nauseous and is no tolerating PO. Will be admitted to Dr. Escamilla's service for further workup. Scribe Attestation: Documented by Nati Barreto acting as a scribe for Francesca Viera MD Provider Scribe Attestation: All medical record entries made by the Scribe were at my direction and personally dictated by me. I have reviewed the chart and agree that the record accurately reflects my personal performance of the history, physical exam, medical decision making, and the department course for this patient. I have also personally directed, reviewed, and agree with the discharge instructions and disposition. Disposition - Clinical Impression Clinical Impression: Pyelonephritis - POA Present On Arrival: None - Disposition Disposition: Admitted as In-Patient Disposition Time: 10:09 Condition: FAIR
--- NOTE | 2018-06-24 09:42 | CT ---
Date of service: 06/24/2018 PROCEDURE: CT Abdomen and Pelvis without intravenous contrast HISTORY: renal colic COMPARISON: None. TECHNIQUE: Without contrast.. Contrast dose: 0 Radiation dose: Total exam DLP = 365.64 mGy-cm. This CT exam was performed using one or more of the following dose reduction techniques: Automated exposure control, adjustment of the mA and/or kV according to patient size, and/or use of iterative reconstruction technique. FINDINGS: LOWER THORAX: Unremarkable. LIVER: Unremarkable. No gross lesion or ductal dilatation. GALLBLADDER AND BILE DUCTS: Unremarkable. PANCREAS: Unremarkable. No gross lesion or ductal dilatation. SPLEEN: Unremarkable. ADRENALS: Unremarkable. No mass. KIDNEYS AND URETERS: Multiple punctate nonobstructing right renal calculi. Punctate nonobstructing left upper pole renal calculus. No hydronephrosis. No renal mass. No hydroureter or ureteral calculus. VASCULATURE: Unremarkable. No aortic aneurysm. No aortic atherosclerotic calcification or mural plaque present. BOWEL: Unremarkable. No obstruction. No gross mural thickening. APPENDIX: Unremarkable. Normal appendix. PERITONEUM: Unremarkable. No free fluid. No free air. LYMPH NODES: Unremarkable. No enlarged lymph nodes. BLADDER: Unremarkable. REPRODUCTIVE: Normal uterus. Right adnexal cyst, 3.5 cm, likely ovarian. Consider correlation with ultrasound examination. BONES: No acute fracture. OTHER FINDINGS: None. IMPRESSION: Punctate bilateral nonobstructing renal calculi, right greater than left. No evidence of urinary tract obstruction. 3.5 cm right adnexal cystic structure, likely ovarian cyst. Consider correlation with ultrasound examination. No additional abnormality.
[2018-06-24] MEDS ORDERED: cefTRIAXone (Rocephin) 1 gm Inj ONE (10:35)
[2018-06-24] MEDS ORDERED: Morphine 4 MG/ML VIAL IVP PRN (16:45)
[2018-06-24] MEDS: Sodium Chloride 0.9% 1,000 ML IV SCH (19:00)
[2018-06-24] MEDS: Morphine 4 MG/ML VIAL IVP PRN (20:31)
[2018-06-24] MEDS: Piperacillin/Tazobact 3.375 GM in Sodium Chloride 0.9% 100 ML IVPB SCH (21:27)
[2018-06-25] MEDS: Morphine 4 MG/ML VIAL IVP PRN ×6 (01:45→20:01)
[2018-06-25] MEDS: Piperacillin/Tazobact 3.375 GM in Sodium Chloride 0.9% 100 ML IVPB SCH ×4 (04:22→21:04)
[2018-06-25] MEDS: Sodium Chloride 0.9% 1,000 ML IV SCH ×3 (05:00→21:07)
[2018-06-25 06:03] LABS: HEMOGLOBIN 12.2 g/dL (12.0-16.0); MEAN CORPUSCULAR HEMOGLOBIN 31.4 pg (27.0-31.0); MEAN CORPUSCULAR HGB CONC 33.7 g/dL (33.0-37.0); RBC 3.89 Mil/uL (3.80-5.20); RED CELL DISTRIBUTION WIDTH 12.4 % (11.5-14.5); WHITE BLOOD COUNT 8.3 K/uL (4.8-10.8)
[2018-06-25 06:25] LABS: ALB/GLOB RATIO 1.1 (1.0-2.1); ALBUMIN 3.7 g/dL (3.5-5.0); ALT/SGPT 22 U/L (9-52); AST/SGOT 22 U/L (14-36); BLOOD UREA NITROGEN 8 mg/dl (7-17); CALCIUM 8.4 mg/dL (8.4-10.2); GFR NON-AFRICAN AMERICAN > 60
[2018-06-25] MEDS ORDERED: Ciprofloxacin 400mg/200ml D5W 400 MG/200 ML BAG IVPB SCH (09:00)
--- NOTE | 2018-06-25 13:34 | CP.PCM.CON ---
History of Present Illness - History of Present Illness History of Present Illness: 28 year old female with pmhx of Lupus and previous kidney infections presents to the ED for evaluation of right flank pain associated with fever, chills, and nausea for the past two days. admitted to regular medical floor and referred for ID eval of pyelonephritis Right side - Medical History PMH: Anemia, Bronchitis, HTN Other PMH: Lupus Review of Systems - Review of Systems All systems: reviewed and no additional remarkable complaints except - Constitutional Constitutional: As Per HPI - EENT Eyes: absent: As Per HPI, Blind Spots, Blurred Vision, Change in Vision, Decreased Night Vision, Diplopia, Discharge, Dry Eye, Exophthalmos, Floaters, Irritation, Itchy Eyes, Loss of Peripheral Vision, Pain, Photophobia, Requires Corrective Lenses, Sees Flashes, Spots in Vision, Tunnel Vision, Other Visual Disturbances, Loss of Vision, Other Ears: absent: As Per HPI, Decreased Hearing, Ear Discharge, Ear Pain, Tinnitus, Abnormal Hearing, Disequilibrium, Dizziness, Other Nose/Mouth/Throat: absent: As Per HPI, Epistaxis, Nasal Congestion, Nasal Discharge, Nasal Obstruction, Nasal Trauma, Nose Pain, Post Nasal Drip, Sinus Pain, Sinus Pressure, Bleeding Gums, Change in Voice, Dental Pain, Dry Mouth, Dysphagia, Halitosis, Hoarsness, Lip Swelling, Mouth Lesions, Mouth Pain, Odynophagia, Sore Throat, Throat Swelling, Tongue Swelling, Facial Pain, Neck Pain, Neck Mass, Other - Breasts Breasts: absent: As Per HPI, Change in Shape, Mass, Pain, Nipple Discharge, Nipple Inversion, Skin Changes, Swelling, Other - Cardiovascular Cardiovascular: absent: As Per HPI, Acrocyanosis, Chest Pain, Chest Pain at Rest, Chest Pain with Activity, Claudication, Diaphoresis, Dyspnea, Dyspnea on Exertion, Edema, Irregular Heart Rhythm, Pain Radiating to Arm/Neck/Jaw, Leg Edema, Leg Ulcers, Lightheadedness, Orthopnea, Palpitations, Paroxysmal Nocturnal Dyspnea, Pedal Edema, Radiating Pain, Rapid Heart Rate, Slow Heart Rate, Syncope, Other - Respiratory Respiratory: absent: As Per HPI, Cough, Dyspnea, Hemoptysis, Dyspnea on Exertion, Wheezing, Snoring, Stridor, Pain on Inspiration, Chest Congestion, Excessive Mucous Production, Change in Mucous Color, Pain with Coughing, Other - Gastrointestinal Gastrointestinal: absent: As Per HPI, Abdominal Pain, Belching, Bloating, Change in Bowel Habits, Change in Stool Character, Coffee Ground Emesis, Constipation, Cramping, Diarrhea, Dyspepsia, Dysphagia, Early Satiety, Excessive Flatus, Fecal Incontinence, Heartburn, Hematemesis, Hematochezia, Loose Stools, Melena, Nausea, Odynophagia, Temesmus, Vomiting, Other - Genitourinary Genitourinary: As Per HPI - Reproductive: Female Reproductive:Female: absent: As Per HPI, Amenorrhea, Amenorrhea/ Control, Currently Menstual, Cycle <21 Days, Cycle >35 Days, Cycle Variable, Menses 1-7 Days, Menses >/= 8 Days, Menses Variable, Cycle > 4 Weeks Between, No Menses for 6 Months, Heavy Menses, Light Menses, Normal Menses, Spotting Between Cycles, S/P Hysterectomy, Menopausal, Post Menopausal, Premenarche, Abnormal Vaginal Bleeding, Dysmenorrhea, Dyspareunia, Genital Lesions, Genital Pruritis, Pelvic Pain, Prolapse Symptoms, Sexual Dysfunction, Vaginal Discharge, Vaginal Dryness, Vaginal Odor, Vaginal Pruritis, Other - Menstruation Menstruation: absent: As Per HPI, Amenorrhea, Amenorrhea/ Control, Currently Menstual, Cycle <21 Days, Cycle >35 Days, Cycle Variable, Menses 1-7 Days, Menses >/= 8 Days, Menses Variable, Cycle > 4 Weeks Between, No Menses for 6 Months, Heavy Menses, Light Menses, Normal Menses, Spotting Between Cycles, S/P Hysterectomy, Menopausal, Post Menopausal, Premenarche, Abnormal Vaginal Bleeding, Dysmenorrhea, Other - Musculoskeletal Musculoskeletal: absent: As Per HPI, Abnormal Gait, Arthralgias, Atrophy, Back Pain, Deformity, Joint Swelling, Limited Range of Motion, Loss of Height, Muscle Cramps, Muscle Weakness, Myalgias, Neck Pain, Numbness, Radiating Pain into Limb, Stiffness, Tingling, Other - Integumentary Integumentary: absent: As Per HPI, Acne, Alopecia, Bleeding Lesions, Change in Hair, Change in Nails, Change in Pigmentation, Changing Lesions, Dry Skin, Be thema, Furuncle, Hirsutism, Lesions, New Lesions, Non-Healing Lesions, Photosensitivity, Pruritus, Rash, Skin Pain, Skin Ulcer, Sores, Striae, Swelling, Unusual Bruising, Wounds, Jaundice, Other - Neurological Neurological: absent: As Per HPI, Abnormal Gait, Abnormal Hearing, Abnormal Movements, Abnormal Speech, Behavioral Changes, Burning Sensations, Confusion, Convulsions, Disequilibrium, Dizziness, Numbness, Focal Weakness, Frequent Falls, Headaches, Lack of Coordination, Loss of Vision, Memory Loss, Paresthesias, Radicular Pain, Restless Legs, Sensory Deficit, Syncope, Tingling, Tremor, Vertigo, Weakness, Other Visual Disturbances, Other - Psychiatric Psychiatric: absent: As Per HPI, Abnormal Sleep Pattern, Anhedonia, Anxiety, Auditory Hallucinations, Behavioral Changes, Change in Appetite, Change in Libido, Confusion, Depression, Difficulty Concentrating, Hallucinations, Homicidal Ideation, Hopelessness, Irritability, Memory Loss, Mood Swings, Panic Attacks, Paranoia, Suicidal Ideation, Visual Hallucinations, Tactile Hallucinations, Other - Endocrine Endocrine: absent: As Per HPI, Change in Body Appearance, Change in Libido, Cold Intolorance, Deepening of Voice, Excessive Sweating, Fatigue, Flushing, Heat Intolorance, Increase in Ring/Shoe/Hat Size, Palpitations, Polydipsia, Polyphagia, Polyuria, Other - Hematologic/Lymphatic Hematologic: absent: As Per HPI, Easy Bleeding, Easy Bruising, Lymphadenopathy, Other Past Patient History - Infectious Disease Hx of Infectious Diseases: None - Past Social History Smoking Status: Light Smoker < 10 Cigarettes Daily - CARDIAC Hx Hypertension: Yes - PULMONARY Hx Respiratory Disorders: Yes Hx Bronchitis: Yes - NEUROLOGICAL Hx Neurological Disorder: No - HEENT Hx HEENT Problems: No - RENAL Hx Chronic Kidney Disease: Yes Hx Kidney Stones: Yes Hx Pyelonephritis: Yes Other/Comment: Abcess on left side of face - ENDOCRINE/METABOLIC Hx Endocrine Disorders: Yes Hx Systemic Lupus Erythematosus: Yes - HEMATOLOGICAL/ONCOLOGICAL Hx Blood Disorders: Yes Hx Anemia: Yes - INTEGUMENTARY Hx Dermatological Problems: No - MUSCULOSKELETAL/RHEUMATOLOGICAL Hx Musculoskeletal Disorders: No Hx Falls: No - GASTROINTESTINAL Hx Gastrointestinal Disorders: No - GENITOURINARY/GYNECOLOGICAL Hx Genitourinary Disorders: No - PSYCHIATRIC Hx Psychophysiologic Disorder: No Hx Substance Use: No - SURGICAL HISTORY Hx Surgeries: No - ANESTHESIA Hx Anesthesia: No Hx Anesthesia Reactions: No Hx Malignant Hyperthermia: No Has any member of the family had a problem w/ anesthesia?: No Meds Allergies/Adverse Reactions: Allergies Allergy/AdvReac Type Severity Reaction Status Date / Time ibuprofen [From Motrin] Allergy PAIN Verified 11/22/17 17:53 Iodinated Contrast- Oral and Allergy ITCHING Verified 11/22/17 17:53 IV Dye - Medications Medications: Current Medications Acetaminophen (Tylenol 325mg Tab) 650 mg PO Q4 PRN PRN Reason: Fever >100.4 F Last Admin: 06/25/18 07:41 Dose: 650 mg Amlodipine Besylate (Norvasc) 10 mg PO DAILY [facility] Last Admin: 06/25/18 08:31 Dose: 10 mg Famotidine (Pepcid) 20 mg IVP DAILY [facility] Last Admin: 06/25/18 08:30 Dose: 20 mg Sodium Chloride (Sodium Chloride 0.9%) 1,000 mls @ 100 mls/hr IV .Q10H [facility] Stop: 06/25/18 18:56 Last Admin: 06/25/18 05:00 Dose: Not Given Piperacillin Sod/Tazobactam (Sod 3.375 gm/ Sodium Chloride) 100 mls @ 100 mls/hr IVPB Q6 [facility]; Protocol Last Admin: 06/25/18 09:43 Dose: 100 mls/hr Ketorolac Tromethamine (Toradol) 15 mg IVP Q6 PRN PRN Reason: Pain, moderate (4-7) Last Admin: 06/25/18 12:03 Dose: 15 mg Lisinopril (Zestril) 20 mg PO DAILY [facility] Last Admin: 06/25/18 08:31 Dose: 20 mg Morphine Sulfate (Morphine) 2 mg IVP Q4 PRN PRN Reason: Pain, severe (8-10) Last Admin: 06/25/18 09:40 Dose: 2 mg Ondansetron HCl (Zofran Inj) 2 mg IVP Q6 PRN PRN Reason: Nausea/Vomiting Last Admin: 06/25/18 08:28 Dose: 2 mg Physical Exam - Constitutional Appears: Non-toxic - Head Exam Head Exam: ATRAUMATIC, NORMOCEPHALIC - Eye Exam Eye Exam: EOMI, PERRL. absent: Scleral icterus - ENT Exam ENT Exam: Mucous Membranes Dry - Neck Exam Neck exam: Negative for: Lymphadenopathy - Respiratory Exam Respiratory Exam: Decreased Breath Sounds, Clear to Auscultation Bilateral - Cardiovascular Exam Cardiovascular Exam: REGULAR RHYTHM, +S1, +S2 - GI/Abdominal Exam GI & Abdominal Exam: Diminished Bowel Sounds, Distended, Soft. absent: Guarding, Rebound, Rigid, Tenderness - Rectal Exam Rectal Exam: Deferred - Expanded Exam Expanded Female exam: Positive for: deferred - Extremities Exam Extremities exam: Positive for: pedal pulses present. Negative for: calf tenderness, pedal edema, tenderness - Back Exam Back exam: CVA tenderness (R). absent: CVA tenderness (L), paraspinal tenderness - Neurological Exam Neurological exam: Alert, CN II-XII Intact, Oriented x3, Reflexes Normal - Psychiatric Exam Psychiatric exam: Normal Mood - Skin Skin Exam: Dry Results - Vital Signs Recent Vital Signs: Last Vital Signs Temp 99.1 F 06/25/18 09:41 Pulse 106 H 06/25/18 08:31 Resp 19 06/25/18 07:57 BP 140/96 H 06/25/18 08:31 Pulse Ox 99 06/25/18 07:57 - Labs Result Diagrams: 06/25/18 05:40 06/25/18 05:40 Labs: Laboratory Results - last 24 hr 06/25/18 06/25/18 05:40 05:40 WBC 8.3 RBC 3.89 Hgb 12.2 Hct 36.2 MCV 93.0 MCH 31.4 H MCHC 33.7 RDW 12.4 Plt Count 219 Sodium 140 Potassium 3.6 Chloride 107 Carbon Dioxide 26 Anion Gap 11 BUN 8 Creatinine 0.9 Est GFR ( Amer) > 60 Est GFR (Non-Af Amer) > 60 Random Glucose 105 Calcium 8.4 Total Bilirubin 1.4 H AST 22 ALT 22 Alkaline Phosphatase 44 Total Protein 7.1 Albumin 3.7 Globulin 3.4 Albumin/Globulin Ratio 1.1 Assessment & Plan (1) Lupus Status: Acute (2) UTI (urinary tract infection) Status: Acute - Assessment and Plan (Free Text) Assessment: 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
--- NOTE | 2018-06-25 13:48 | CP.PCM.CON ---
History of Present Illness - History of Present Illness History of Present Illness: 28 yo w/ abdominal pain, likely pyelonephritis, has severe pain refractory to Toradol and Morphine 2mg IV. She has nausea and isn't able to tolerate PO. Pain is in the abdomen diffusely, but not significantly in the flank. She states that she has a history of SLE with musculoskeletal manifestations, but doesn't have chronic pain and isn't on chronic opioids. She states that she suffers from intermittent issues with her kidneys, about twice yearly, and is usually admitted at [facility] [place], [place]. She's never been admitted to [place] before but has visited ER repeatedly. She has a reaction of "kidney inflammation" from Ibuprofen before, but hasn't had allergic symptoms to Toradol thus far. Past Patient History - Infectious Disease Hx of Infectious Diseases: None - Past Social History Smoking Status: Light Smoker < 10 Cigarettes Daily - CARDIAC Hx Hypertension: Yes - PULMONARY Hx Respiratory Disorders: Yes Hx Bronchitis: Yes - NEUROLOGICAL Hx Neurological Disorder: No - HEENT Hx HEENT Problems: No - RENAL Hx Chronic Kidney Disease: Yes Hx Kidney Stones: Yes Hx Pyelonephritis: Yes Other/Comment: Abcess on left side of face - ENDOCRINE/METABOLIC Hx Endocrine Disorders: Yes Hx Systemic Lupus Erythematosus: Yes - HEMATOLOGICAL/ONCOLOGICAL Hx Blood Disorders: Yes Hx Anemia: Yes - INTEGUMENTARY Hx Dermatological Problems: No - MUSCULOSKELETAL/RHEUMATOLOGICAL Hx Musculoskeletal Disorders: No Hx Falls: No - GASTROINTESTINAL Hx Gastrointestinal Disorders: No - GENITOURINARY/GYNECOLOGICAL Hx Genitourinary Disorders: No - PSYCHIATRIC Hx Psychophysiologic Disorder: No Hx Substance Use: No - SURGICAL HISTORY Hx Surgeries: No - ANESTHESIA Hx Anesthesia: No Hx Anesthesia Reactions: No Hx Malignant Hyperthermia: No Has any member of the family had a problem w/ anesthesia?: No Meds Allergies/Adverse Reactions: Allergies Allergy/AdvReac Type Severity Reaction Status Date / Time ibuprofen [From Motrin] Allergy PAIN Verified 11/22/17 17:53 Iodinated Contrast- Oral and Allergy ITCHING Verified 11/22/17 17:53 IV Dye - Medications Medications: Current Medications Acetaminophen (Tylenol 325mg Tab) 650 mg PO Q4 PRN PRN Reason: Fever >100.4 F Last Admin: 06/25/18 07:41 Dose: 650 mg Amlodipine Besylate (Norvasc) 10 mg PO DAILY [facility] Last Admin: 06/25/18 08:31 Dose: 10 mg Famotidine (Pepcid) 20 mg IVP DAILY [facility] Last Admin: 06/25/18 08:30 Dose: 20 mg Sodium Chloride (Sodium Chloride 0.9%) 1,000 mls @ 100 mls/hr IV .Q10H [facility] Stop: 06/25/18 18:56 Last Admin: 06/25/18 05:00 Dose: Not Given Piperacillin Sod/Tazobactam (Sod 3.375 gm/ Sodium Chloride) 100 mls @ 100 mls/hr IVPB Q6 [facility]; Protocol Last Admin: 06/25/18 09:43 Dose: 100 mls/hr Ketorolac Tromethamine (Toradol) 15 mg IVP Q6 PRN PRN Reason: Pain, moderate (4-7) Last Admin: 06/25/18 12:03 Dose: 15 mg Lisinopril (Zestril) 20 mg PO DAILY [facility] Last Admin: 06/25/18 08:31 Dose: 20 mg Morphine Sulfate (Morphine) 2 mg IVP Q4 PRN PRN Reason: Pain, severe (8-10) Last Admin: 06/25/18 09:40 Dose: 2 mg Ondansetron HCl (Zofran Inj) 2 mg IVP Q6 PRN PRN Reason: Nausea/Vomiting Last Admin: 06/25/18 08:28 Dose: 2 mg Physical Exam - Constitutional Appears: Non-toxic - GI/Abdominal Exam GI & Abdominal Exam: Soft, Tenderness Results - Vital Signs Recent Vital Signs: Last Vital Signs Temp 99.1 F 06/25/18 09:41 Pulse 106 H 06/25/18 08:31 Resp 19 06/25/18 07:57 BP 140/96 H 06/25/18 08:31 Pulse Ox 99 06/25/18 07:57 - Labs Result Diagrams: 06/25/18 05:40 06/25/18 05:40 Labs: Laboratory Results - last 24 hr 06/25/18 06/25/18 05:40 05:40 WBC 8.3 RBC 3.89 Hgb 12.2 Hct 36.2 MCV 93.0 MCH 31.4 H MCHC 33.7 RDW 12.4 Plt Count 219 Sodium 140 Potassium 3.6 Chloride 107 Carbon Dioxide 26 Anion Gap 11 BUN 8 Creatinine 0.9 Est GFR ( Amer) > 60 Est GFR (Non-Af Amer) > 60 Random Glucose 105 Calcium 8.4 Total Bilirubin 1.4 H AST 22 ALT 22 Alkaline Phosphatase 44 Total Protein 7.1 Albumin 3.7 Globulin 3.4 Albumin/Globulin Ratio 1.1 Assessment & Plan - Assessment and Plan (Free Text) Assessment: 28 yo woman w/ abdominal pain from pyelonephritis/nephrolithiasis. She's not tolerating PO yet. Toradol probably shouldn't be relied upon due to "reaction" to Ibuprofen before, although her kidney function appears to be normal currently. She was sleeping comfortably prior to my examination, but states that she's in severe pain. - would d/c Toradol after 3 days - increase Morphine to 4mg q4h PRN IV, if insufficient then would change to Dilaudid 1mg IV PRN - would switch to Percocet when she starts taking PO - supportive care
--- NOTE | 2018-06-25 14:30 | RAD ---
Date of service: 06/25/2018 HISTORY: Fever. COMPARISON: No prior. FINDINGS: LUNGS: No active pulmonary disease. PLEURA: No significant pleural effusion identified, no pneumothorax apparent. CARDIOVASCULAR: No atherosclerotic calcification present Normal. OSSEOUS STRUCTURES: No significant abnormalities. VISUALIZED UPPER ABDOMEN: Normal. OTHER FINDINGS: None. IMPRESSION: No active disease.
[2018-06-26] MEDS: Morphine 4 MG/ML VIAL IVP PRN ×6 (00:35→21:12)
[2018-06-26] MEDS: Piperacillin/Tazobact 3.375 GM in Sodium Chloride 0.9% 100 ML IVPB SCH ×4 (03:14→21:13)
[2018-06-26 07:18] LABS: BLOOD UREA NITROGEN 7 mg/dl (7-17); CALCIUM 8.4 mg/dL (8.4-10.2); GFR NON-AFRICAN AMERICAN > 60
[2018-06-26 07:24] LABS: HEMOGLOBIN 10.8 g/dL (12.0-16.0); MEAN CELL VOLUME 90.1 fl (81.0-99.0); MEAN CORPUSCULAR HEMOGLOBIN 30.9 pg (27.0-31.0); MEAN CORPUSCULAR HGB CONC 34.3 g/dL (33.0-37.0); RBC 3.51 Mil/uL (3.80-5.20); RED CELL DISTRIBUTION WIDTH 12.2 % (11.5-14.5); WHITE BLOOD COUNT 9.4 K/uL (4.8-10.8)
[2018-06-26] MEDS: Sodium Chloride 0.9% 1,000 ML IV SCH ×2 (07:25→16:57)
[2018-06-26] MEDS ORDERED: Potassium Chloride 20 mEq ER Tab PO ONE (10:45)
--- NOTE | 2018-06-26 14:53 | US ---
Date of service: 06/26/2018 PROCEDURE: HISTORY: ADNEXAL CYST COMPARISON: TECHNIQUE: FINDINGS: Uterus measures 7.0 x 3.7 x 4.9 cm. Endometrium measures 5 millimeters. There is free fluid the pelvis. Left ovary measures 1.8 x 2.5 x 1.8 centimeters. The right ovary is 4.2 x 3.0 centimeters and contains septated cyst measuring 2.5 centimeters and 1.3 centimeters. IMPRESSION: Septated right ovarian cysts.
--- NOTE | 2018-06-26 15:13 | CT ---
Date of service: 06/26/2018 PROCEDURE: CT HEAD WITHOUT CONTRAST. HISTORY: intractable headache COMPARISON: None available. TECHNIQUE: Axial computed tomography images were obtained through the head/brain without intravenous contrast. Radiation dose: Total exam DLP = 866.62 mGy-cm. This CT exam was performed using one or more of the following dose reduction techniques: Automated exposure control, adjustment of the mA and/or kV according to patient size, and/or use of iterative reconstruction technique. FINDINGS: HEMORRHAGE: No intracranial hemorrhage. BRAIN: No mass effect or edema. No atrophy or chronic microvascular ischemic changes. VENTRICLES: Unremarkable. No hydrocephalus. CALVARIUM: Unremarkable. PARANASAL SINUSES: Unremarkable as visualized. No significant inflammatory changes. MASTOID AIR CELLS: Unremarkable as visualized. No inflammatory changes. OTHER FINDINGS: None. IMPRESSION: Normal CT of the Head.
[2018-06-27] MEDS: Morphine 4 MG/ML VIAL IVP PRN ×5 (02:28→20:14)
[2018-06-27] MEDS: Piperacillin/Tazobact 3.375 GM in Sodium Chloride 0.9% 100 ML IVPB SCH ×2 (03:04→09:00)
[2018-06-27] MEDS: Sodium Chloride 0.9% 1,000 ML IV SCH ×4 (03:04→23:00)
[2018-06-27 07:28] LABS: HEMOGLOBIN 10.7 g/dL (12.0-16.0); MEAN CELL VOLUME 89.9 fl (81.0-99.0); MEAN CORPUSCULAR HEMOGLOBIN 31.3 pg (27.0-31.0); MEAN CORPUSCULAR HGB CONC 34.8 g/dL (33.0-37.0); RBC 3.42 Mil/uL (3.80-5.20); RED CELL DISTRIBUTION WIDTH 12.2 % (11.5-14.5); WHITE BLOOD COUNT 5.6 K/uL (4.8-10.8)
[2018-06-27 07:37] LABS: ALBUMIN 3.5 g/dL (3.5-5.0); ALT/SGPT 18 U/L (9-52); AST/SGOT 19 U/L (14-36); BLOOD UREA NITROGEN 7 mg/dl (7-17); CALCIUM 8.5 mg/dL (8.4-10.2); GFR NON-AFRICAN AMERICAN > 60
[2018-06-27 08:08] VITALS: RESP 20
[2018-06-27] MEDS ORDERED: Potassium Chloride 20 mEq ER Tab PO ONE (12:12)
[2018-06-27] MEDS ORDERED: Ciprofloxacin 400mg/200ml D5W 400 MG/200 ML BAG IVPB SCH ×2 (13:00→16:00)
--- NOTE | 2018-06-27 13:44 | CP.PCM.PN ---
Subjective - Date & Time of Evaluation Date of Evaluation: 06/27/18 Time of Evaluation: 07:00 - Subjective Subjective: 28 year old female with pmhx of Lupus and previous kidney infections presents to the ED for evaluation of right flank pain associated with fever, chills, and nausea for the past two days. admitted to regular medical floor and referred for ID eval of pyelonephritis Right side Objective - Vital Signs/Intake and Output Vital Signs (last 24 hours): Temp Pulse Resp BP Pulse Ox 98.4 F 79 20 135/90 99 06/27/18 08:07 06/27/18 08:07 06/27/18 08:07 06/27/18 08:07 06/27/18 08:07 - Medications Medications: Current Medications Acetaminophen (Tylenol 325mg Tab) 650 mg PO Q4 PRN PRN Reason: Fever >100.4 F Last Admin: 06/26/18 16:46 Dose: 650 mg Amlodipine Besylate (Norvasc) 10 mg PO DAILY [facility] [place] Last Admin: 06/27/18 09:00 Dose: 10 mg Famotidine (Pepcid) 20 mg IVP DAILY [facility] [place] Last Admin: 06/27/18 09:00 Dose: 20 mg Sodium Chloride (Sodium Chloride 0.9%) 1,000 mls @ 100 mls/hr IV .Q10H [facility] [place] Stop: 06/28/18 20:50 Last Admin: 06/27/18 03:04 Dose: 100 mls/hr Ciprofloxacin (Cipro 400mg/200ml Dsw) 400 mg in 200 mls @ 200 mls/hr IVPB Q12 [facility]; Protocol Lisinopril (Zestril) 20 mg PO DAILY [facility] [place] Last Admin: 06/27/18 09:00 Dose: 20 mg Morphine Sulfate (Morphine) 4 mg IVP Q4 PRN PRN Reason: Pain, severe (8-10) Last Admin: 06/27/18 11:00 Dose: 4 mg Ondansetron HCl (Zofran Inj) 2 mg IVP Q6 PRN PRN Reason: Nausea/Vomiting Last Admin: 06/27/18 09:05 Dose: 2 mg Senna/Docusate Sodium (Senokot S 50 Mg-8.6 Mg) 2 tab PO HS [facility] [place] - Labs Labs: 06/27/18 05:25 06/27/18 05:25 - Constitutional Appears: Non-toxic, Chronically Ill - Head Exam Head Exam: NORMOCEPHALIC - Eye Exam Eye Exam: absent: Scleral icterus - ENT Exam ENT Exam: Mucous Membranes Dry - Neck Exam Neck Exam: absent: Lymphadenopathy - Respiratory Exam Respiratory Exam: Decreased Breath Sounds - Cardiovascular Exam Cardiovascular Exam: REGULAR RHYTHM - GI/Abdominal Exam GI & Abdominal Exam: Distended, Soft - Rectal Exam Rectal Exam: Deferred - Exam Exam: NORMAL INSPECTION - Extremities Exam Extremities Exam: absent: Pedal Edema - Back Exam Back Exam: CVA tenderness (R). absent: CVA tenderness (L) - Neurological Exam Neurological Exam: Alert, Awake, CN II-XII Intact, Oriented x3 - Psychiatric Exam Psychiatric exam: Normal Mood - Skin Skin Exam: Dry Assessment and Plan (1) Lupus Status: Acute (2) UTI (urinary tract infection) Status: Acute - Assessment and Plan (Free Text) Assessment: cont rx for pyelonephritis and ui lead developer follow up as out pt needs 14 days antibiotic
[2018-06-27] MEDS: cefTRIAXone 2 GM in Sodium Chloride 0.9% 100 ML IVPB SCH (21:13)
[2018-06-27] MEDS ORDERED: Docusate-Senna 50 mg-8.6 mg Tab PO SCH (22:00)
--- NOTE | 2018-06-27 23:09 | CP.PCM.HP ---
History of Present Illness - History of Present Illness History of Present Illness: 28 yo female with PMHx of Lupus and previous kidney infections presented to the ED with right flank pain associated with fever, chills, and nausea x 2 days. Patient diagnosed with acute pyelonephritis. Patient seen and examined at bedside. Complaints of right flank pain, requiring IV pain medications No other complaints offered at this time denies cp/sob/palpitaitons/vaginal bleeding PMD: Dr Varela Present on Admission - Present on Admission Any Indicators Present on Admission: No Review of Systems - Review of Systems All systems: reviewed and no additional remarkable complaints except (mentioned in HPI) Past Patient History - Infectious Disease Hx of Infectious Diseases: None - Past Medical History & Family History Past Medical History?: Yes Past Family History: Reviewed and not pertinent - Past Social History Alcohol: None Drugs: Denies - CARDIAC Hx Hypertension: Yes - PULMONARY Hx Bronchitis: Yes - NEUROLOGICAL Hx Neurological Disorder: No - HEENT Hx HEENT Problems: No - RENAL Hx Chronic Kidney Disease: Yes Hx Kidney Stones: Yes Hx Pyelonephritis: Yes Other/Comment: Abcess on left side of face - ENDOCRINE/METABOLIC Hx Endocrine Disorders: Yes Hx Systemic Lupus Erythematosus: Yes - HEMATOLOGICAL/ONCOLOGICAL Hx Anemia: Yes - INTEGUMENTARY Hx Dermatological Problems: No - MUSCULOSKELETAL/RHEUMATOLOGICAL Hx Musculoskeletal Disorders: No Hx Falls: No - GASTROINTESTINAL Hx Gastrointestinal Disorders: No - GENITOURINARY/GYNECOLOGICAL Hx Genitourinary Disorders: No - PSYCHIATRIC Hx Psychophysiologic Disorder: No Hx Substance Use: No - SURGICAL HISTORY Hx Surgeries: No - ANESTHESIA Hx Anesthesia: No Hx Anesthesia Reactions: No Hx Malignant Hyperthermia: No Has any member of the family had a problem w/ anesthesia?: No Meds Home Medications: Home Medication List Medication Instructions Recorded Confirmed Type Cefpodoxime [Vantin] 200 mg PO BID 14 Days tab 06/27/18 Rx Allergies/Adverse Reactions: Allergies Allergy/AdvReac Type Severity Reaction Status Date / Time ciprofloxacin [From Cipro] Allergy ITCHING Verified 06/27/18 17:31 ibuprofen [From Motrin] Allergy PAIN Verified 11/22/17 17:53 Iodinated Contrast- Oral and Allergy ITCHING Verified 11/22/17 17:53 IV Dye Physical Exam - Constitutional Appears: Non-toxic, In Acute Distress - Head Exam Head Exam: NORMAL INSPECTION - Eye Exam Eye Exam: Normal appearance - Respiratory Exam Respiratory Exam: NORMAL BREATHING PATTERN - Cardiovascular Exam Cardiovascular Exam: +S1, +S2 - GI/Abdominal Exam GI & Abdominal Exam: Normal Bowel Sounds, Soft - Extremities Exam Extremities exam: Positive for: normal inspection - Back Exam Back exam: CVA tenderness (R) - Neurological Exam Neurological exam: Alert, Oriented x3 - Psychiatric Exam Psychiatric exam: Normal Affect, Normal Mood - Skin Skin Exam: Normal Color, Warm Results - Vital Signs Recent Vital Signs: Last Vital Signs Temp 98.0 F 06/27/18 16:10 Pulse 73 06/27/18 16:10 Resp 20 06/27/18 16:10 BP 133/91 H 06/27/18 16:10 Pulse Ox 99 06/27/18 22:14 - Labs Result Diagrams: 06/27/18 05:25 06/27/18 05:25 Labs: Laboratory Results - last 24 hr 06/27/18 06/27/18 05:25 05:25 WBC 5.6 RBC 3.42 L Hgb 10.7 L Hct 30.7 L MCV 89.9 MCH 31.3 H MCHC 34.8 RDW 12.2 Plt Count 204 Sodium 138 Potassium 3.4 L Chloride 105 Carbon Dioxide 28 Anion Gap 8 L BUN 7 Creatinine 0.8 Est GFR ( Amer) > 60 Est GFR (Non-Af Amer) > 60 Random Glucose 96 Calcium 8.5 Total Bilirubin 1.0 AST 19 ALT 18 Alkaline Phosphatase 53 Total Protein 6.9 Albumin 3.5 Globulin 3.5 Albumin/Globulin Ratio 1.0 Assessment & Plan - Assessment and Plan (Free Text) Assessment: 28 yo female with acute pyelonephritis plan monitor vitals monitor labs meds as prescribed ID consulted IV abx pain meds prn rest of plan as ordered
--- NOTE | 2018-06-27 23:15 | CP.PCM.PN ---
Subjective - Date & Time of Evaluation Date of Evaluation: 06/25/18 Time of Evaluation: 11:00 - Subjective Subjective: patient seen and examined at bedside. interim events noted all available diagnostic data reviewed. right flank pain continues fever continues, though tmax improved Objective - Vital Signs/Intake and Output Vital Signs (last 24 hours): Temp Pulse Resp BP Pulse Ox 98.0 F 73 20 133/91 H 99 06/27/18 16:10 06/27/18 16:10 06/27/18 16:10 06/27/18 16:10 06/27/18 22:14 - Medications Medications: Current Medications Acetaminophen (Tylenol 325mg Tab) 650 mg PO Q4 PRN PRN Reason: Fever >100.4 F Last Admin: 06/26/18 16:46 Dose: 650 mg Amlodipine Besylate (Norvasc) 10 mg PO DAILY [facility] Last Admin: 06/27/18 09:00 Dose: 10 mg Famotidine (Pepcid) 20 mg IVP DAILY [facility] Last Admin: 06/27/18 09:00 Dose: 20 mg Sodium Chloride (Sodium Chloride 0.9%) 1,000 mls @ 100 mls/hr IV .Q10H [facility] Stop: 06/28/18 20:50 Last Admin: 06/27/18 20:15 Dose: 100 mls/hr Ceftriaxone Sodium 2 gm/ (Sodium Chloride) 100 mls @ 100 mls/hr IVPB DAILY [facility]; Protocol Last Admin: 06/27/18 21:13 Dose: 100 mls/hr Lisinopril (Zestril) 20 mg PO DAILY [facility] Last Admin: 06/27/18 09:00 Dose: 20 mg Morphine Sulfate (Morphine) 4 mg IVP Q4 PRN PRN Reason: Pain, severe (8-10) Last Admin: 06/27/18 20:14 Dose: 4 mg Ondansetron HCl (Zofran Inj) 2 mg IVP Q6 PRN PRN Reason: Nausea/Vomiting Last Admin: 06/27/18 09:05 Dose: 2 mg Senna/Docusate Sodium (Senokot S 50 Mg-8.6 Mg) 2 tab PO HS [facility] Last Admin: 06/27/18 21:18 Dose: 2 tab - Labs Labs: 06/27/18 05:25 06/27/18 05:25 - Additional Findings Additional findings: - Constitutional Appears: Non-toxic, In Acute Distress - Head Exam Head Exam: NORMAL INSPECTION - Eye Exam Eye Exam: Normal appearance - Respiratory Exam Respiratory Exam: NORMAL BREATHING PATTERN - Cardiovascular Exam Cardiovascular Exam: +S1, +S2 - GI/Abdominal Exam GI & Abdominal Exam: Normal Bowel Sounds, Soft - Extremities Exam Extremities exam: Positive for: normal inspection - Back Exam Back exam: CVA tenderness (R) - Neurological Exam Neurological exam: Alert, Oriented x3 - Psychiatric Exam Psychiatric exam: Normal Affect, Normal Mood - Skin Skin Exam: Normal Color, Warm Assessment and Plan - Assessment and Plan (Free Text) Assessment: 28 yo female with acute pyelonephritis plan monitor vitals monitor labs meds as prescribed ID consulted IV abx pain meds prn pain management consulted follow up cultures rest of plan as ordered
--- NOTE | 2018-06-27 23:17 | CP.PCM.PN ---
Subjective - Date & Time of Evaluation Date of Evaluation: 06/26/18 Time of Evaluation: 11:00 - Subjective Subjective: patient seen and examined at bedside. interim events noted all available diagnostic data reviewed. right flank pain continues, though improved fever continues, though improved complains of headache that is intractable Objective - Vital Signs/Intake and Output Vital Signs (last 24 hours): Temp Pulse Resp BP Pulse Ox 98.0 F 73 20 133/91 H 99 06/27/18 16:10 06/27/18 16:10 06/27/18 16:10 06/27/18 16:10 06/27/18 22:14 - Medications Medications: Current Medications Acetaminophen (Tylenol 325mg Tab) 650 mg PO Q4 PRN PRN Reason: Fever >100.4 F Last Admin: 06/26/18 16:46 Dose: 650 mg Amlodipine Besylate (Norvasc) 10 mg PO DAILY [facility] Last Admin: 06/27/18 09:00 Dose: 10 mg Famotidine (Pepcid) 20 mg IVP DAILY [facility] Last Admin: 06/27/18 09:00 Dose: 20 mg Sodium Chloride (Sodium Chloride 0.9%) 1,000 mls @ 100 mls/hr IV .Q10H [facility] Stop: 06/28/18 20:50 Last Admin: 06/27/18 20:15 Dose: 100 mls/hr Ceftriaxone Sodium 2 gm/ (Sodium Chloride) 100 mls @ 100 mls/hr IVPB DAILY [facility]; Protocol Last Admin: 06/27/18 21:13 Dose: 100 mls/hr Lisinopril (Zestril) 20 mg PO DAILY [facility] Last Admin: 06/27/18 09:00 Dose: 20 mg Morphine Sulfate (Morphine) 4 mg IVP Q4 PRN PRN Reason: Pain, severe (8-10) Last Admin: 06/27/18 20:14 Dose: 4 mg Ondansetron HCl (Zofran Inj) 2 mg IVP Q6 PRN PRN Reason: Nausea/Vomiting Last Admin: 06/27/18 09:05 Dose: 2 mg Senna/Docusate Sodium (Senokot S 50 Mg-8.6 Mg) 2 tab PO HS [facility] Last Admin: 06/27/18 21:18 Dose: 2 tab - Labs Labs: 06/27/18 05:25 06/27/18 05:25 - Additional Findings Additional findings: - Constitutional Appears: Non-toxic, In Acute Distress - Head Exam Head Exam: NORMAL INSPECTION - Eye Exam Eye Exam: Normal appearance - Respiratory Exam Respiratory Exam: NORMAL BREATHING PATTERN - Cardiovascular Exam Cardiovascular Exam: +S1, +S2 - GI/Abdominal Exam GI & Abdominal Exam: Normal Bowel Sounds, Soft - Extremities Exam Extremities exam: Positive for: normal inspection - Back Exam Back exam: CVA tenderness (R) - Neurological Exam Neurological exam: Alert, Oriented x3 - Psychiatric Exam Psychiatric exam: Normal Affect, Normal Mood - Skin Skin Exam: Normal Color, Warm Assessment and Plan - Assessment and Plan (Free Text) Assessment: 28 yo female with acute pyelonephritis plan monitor vitals monitor labs meds as prescribed ID consulted, appreciate recommendations IV abx pain meds prn pain management consulted, appreciate recommendations follow up cultures ct of head orderd TVUS ordered rest of plan as ordered
--- NOTE | 2018-06-27 23:18 | CP.PCM.PN ---
Subjective - Date & Time of Evaluation Date of Evaluation: 06/27/18 Time of Evaluation: 11:00 - Subjective Subjective: patient seen and examined at bedside. interim events noted all available diagnostic data reviewed. right flank pain continues, though improved no fever headache improved ct head neg Objective - Vital Signs/Intake and Output Vital Signs (last 24 hours): Temp Pulse Resp BP Pulse Ox 98.0 F 73 20 133/91 H 99 06/27/18 16:10 06/27/18 16:10 06/27/18 16:10 06/27/18 16:10 06/27/18 22:14 - Medications Medications: Current Medications Acetaminophen (Tylenol 325mg Tab) 650 mg PO Q4 PRN PRN Reason: Fever >100.4 F Last Admin: 06/26/18 16:46 Dose: 650 mg Amlodipine Besylate (Norvasc) 10 mg PO DAILY [facility] Last Admin: 06/27/18 09:00 Dose: 10 mg Famotidine (Pepcid) 20 mg IVP DAILY [facility] Last Admin: 06/27/18 09:00 Dose: 20 mg Sodium Chloride (Sodium Chloride 0.9%) 1,000 mls @ 100 mls/hr IV .Q10H [facility] Stop: 06/28/18 20:50 Last Admin: 06/27/18 20:15 Dose: 100 mls/hr Ceftriaxone Sodium 2 gm/ (Sodium Chloride) 100 mls @ 100 mls/hr IVPB DAILY [facility]; Protocol Last Admin: 06/27/18 21:13 Dose: 100 mls/hr Lisinopril (Zestril) 20 mg PO DAILY [facility] Last Admin: 06/27/18 09:00 Dose: 20 mg Morphine Sulfate (Morphine) 4 mg IVP Q4 PRN PRN Reason: Pain, severe (8-10) Last Admin: 06/27/18 20:14 Dose: 4 mg Ondansetron HCl (Zofran Inj) 2 mg IVP Q6 PRN PRN Reason: Nausea/Vomiting Last Admin: 06/27/18 09:05 Dose: 2 mg Senna/Docusate Sodium (Senokot S 50 Mg-8.6 Mg) 2 tab PO HS [facility] Last Admin: 06/27/18 21:18 Dose: 2 tab - Labs Labs: 06/27/18 05:25 06/27/18 05:25 - Additional Findings Additional findings: - Constitutional Appears: Non-toxic, No Acute Distress - Head Exam Head Exam: NORMAL INSPECTION - Eye Exam Eye Exam: Normal appearance - Respiratory Exam Respiratory Exam: NORMAL BREATHING PATTERN - Cardiovascular Exam Cardiovascular Exam: +S1, +S2 - GI/Abdominal Exam GI & Abdominal Exam: Normal Bowel Sounds, Soft - Extremities Exam Extremities exam: Positive for: normal inspection - Neurological Exam Neurological exam: Alert, Oriented x3 - Psychiatric Exam Psychiatric exam: Normal Affect, Normal Mood - Skin Skin Exam: Normal Color, Warm Assessment and Plan - Assessment and Plan (Free Text) Assessment: 28 yo female with acute pyelonephritis plan monitor vitals monitor labs meds as prescribed ID consulted, appreciate recommendations IV abx pain meds prn pain management consulted, appreciate recommendations follow up cultures ct of head neg TVUS reviewed, septated ovarian cyst, asymptomatic, to follow up as outpatient dispo planning rest of plan as ordered
[2018-06-28] VITALS: O2SAT 100
[2018-06-28] MEDS: Morphine 4 MG/ML VIAL IVP PRN ×3 (01:29→09:59)
[2018-06-28] MEDS: Sodium Chloride 0.9% 1,000 ML IV SCH (06:33)
[2018-06-28 08:17] VITALS: PULSE 64; TEMP 97.4
--- NOTE | 2018-06-28 09:44 | CP.PCM.DIS ---
Provider - Provider Date of Admission: 06/24/18 10:09 Attending physician: Shashank Escamilla MD Consults: 06/24/18 18:55 Infectious Disease Consult Routine Comment: Consulting Provider: Garett Palmer Consulting Physician: Garett Palmer Reason for Consult: pyelonephritis, fever 06/25/18 12:01 Anesthesiology Consult Routine Comment: Consulting Provider: Christophe Gross Consulting Physician: Christophe Gross Reason for Consult: hx Lupus, adm with fever, pyelo Hospital Course - Lab Results Lab Results: Micro Results 06/24/18 00:17 Blood-Venous Blood Culture - Preliminary NO GROWTH AFTER 4 DAYS 06/24/18 05:54 Blood-Venous Blood Culture - Preliminary NO GROWTH AFTER 4 DAYS 06/24/18 06:23 Urine,Clean Catch Urine Culture - Final Escherichia Coli Most Recent Lab Values WBC 5.6 K/uL (4.8-10.8) 06/27/18 05:25 RBC 3.42 Mil/uL (3.80-5.20) L 06/27/18 05:25 Hgb 10.7 g/dL (12.0-16.0) L 06/27/18 05:25 Hct 30.7 % (34.0-47.0) L 06/27/18 05:25 MCV 89.9 fl (81.0-99.0) 06/27/18 05:25 MCH 31.3 pg (27.0-31.0) H 06/27/18 05:25 MCHC 34.8 g/dL (33.0-37.0) 06/27/18 05:25 RDW 12.2 % (11.5-14.5) 06/27/18 05:25 Plt Count 204 K/uL (130-400) 06/27/18 05:25 MPV 8.6 fl (7.2-11.7) 06/24/18 05:54 Neut % (Auto) 75.1 % (50.0-75.0) H 06/24/18 05:54 Lymph % (Auto) 17.5 % (20.0-40.0) L 06/24/18 05:54 [place] % (Auto) 7.0 % (0.0-10.0) 06/24/18 05:54 Eos % (Auto) 0.1 % (0.0-4.0) 06/24/18 05:54 Baso % (Auto) 0.3 % (0.0-2.0) 06/24/18 05:54 Neut # (Auto) 5.2 K/uL (1.8-7.0) 06/24/18 05:54 Lymph # (Auto) 1.2 K/uL (1.0-4.3) 06/24/18 05:54 [place] # (Auto) 0.5 K/uL (0.0-0.8) 06/24/18 05:54 Eos # (Auto) 0.0 K/uL (0.0-0.7) 06/24/18 05:54 Baso # (Auto) 0.0 K/uL (0.0-0.2) 06/24/18 05:54 ESR 47 mm/hr (0-20) H 06/26/18 06:30 Sodium 138 mmol/l (132-148) 06/27/18 05:25 Potassium 3.4 MMOL/L (3.6-5.0) L 06/27/18 05:25 Chloride 105 mmol/L (98-107) 06/27/18 05:25 Carbon Dioxide 28 mmol/L (22-30) 06/27/18 05:25 Anion Gap 8 (10-20) L 06/27/18 05:25 BUN 7 mg/dl (7-17) 06/27/18 05:25 Creatinine 0.8 mg/dl (0.7-1.2) 06/27/18 05:25 Est GFR ( Amer) > 60 06/27/18 05:25 Est GFR (Non-Af Amer) > 60 06/27/18 05:25 Random Glucose 96 mg/dL (65-105) 06/27/18 05:25 Lactic Acid < 0.5 MMOL/L (0.7-2.1) L 06/24/18 05:54 Calcium 8.5 mg/dL (8.4-10.2) 06/27/18 05:25 Total Bilirubin 1.0 mg/dl (0.2-1.3) 06/27/18 05:25 AST 19 U/L (14-36) 06/27/18 05:25 ALT 18 U/L (9-52) 06/27/18 05:25 Alkaline Phosphatase 53 U/L (38-126) 06/27/18 05:25 Total Protein 6.9 G/DL (6.3-8.2) 06/27/18 05:25 Albumin 3.5 g/dL (3.5-5.0) 06/27/18 05:25 Globulin 3.5 gm/dL (2.2-3.9) 06/27/18 05:25 Albumin/Globulin Ratio 1.0 (1.0-2.1) 06/27/18 05:25 Urine Color Yellow (YELLOW) 06/24/18 05:54 Urine Clarity Cloudy (Clear) 06/24/18 05:54 Urine pH 6.0 (5.0-8.0) 06/24/18 05:54 Ur Specific [place] 1.015 (1.003-1.030) 06/24/18 05:54 Urine Protein 100 mg/dL (NEGATIVE) 06/24/18 05:54 Urine Glucose (UA) Neg mg/dL (Normal) 06/24/18 05:54 Urine Ketones Negative mg/dL (NEGATIVE) 06/24/18 05:54 Urine Blood Moderate (NEGATIVE) 06/24/18 05:54 Urine Nitrate Positive (NEGATIVE) H 06/24/18 05:54 Urine Bilirubin Negative (NEGATIVE) 06/24/18 05:54 Urine Urobilinogen 0.2-1.0 mg/dL (0.2-1.0) 06/24/18 05:54 Ur Leukocyte Esterase Large [place]/uL (Negative) 06/24/18 05:54 Urine RBC (Auto) 28 /hpf (0-3) H 06/24/18 05:54 Urine Microscopic WBC 607 /hpf (0-5) H 06/24/18 05:54 Ur Squamous Epith Cells 1 /hpf (0-5) 06/24/18 05:54 Urine Bacteria Many (<OCC) H 06/24/18 05:54 Discharge Exam - Head Exam Head Exam: NORMAL INSPECTION Discharge Plan - Discharge Medications Prescriptions: Cefpodoxime [Vantin] 200 mg PO BID 14 Days tab - Follow Up Plan Condition: FAIR Disposition: HOME/ ROUTINE Instructions: Urinary Tract Infection, Adult (DC) Additional Instructions: follow up with primary MD 1 week Referrals: Christophe Gross MD [Staff Provider] - Garett Palmer MD [Staff Provider] - Katherine Centeno MD [Family Provider] -
[2018-06-28] MEDS: cefTRIAXone 2 GM in Sodium Chloride 0.9% 100 ML IVPB SCH (09:50)
[2018-06-28 10:00] VITALS: BP 130/84
== END 2018-06-28 12:06 | disposition home or self-care (01) | DRG 320 ==
LOC: H.ER 04:49 → H.ERHOLD 10:09 → H.MEDSURG1 16:10
PROVIDERS: ADMIT Family Medicine; ATTEND Family Medicine
DX: N10 Acute pyelonephritis (principal); M32.9 Systemic lupus erythematosus, unspecified; N20.0 Calculus of kidney; I12.9 Hypertensive chronic kidney disease with stage 1 through stage 4 chronic kidney disease, or unspecified chronic kidney disease; N18.9 Chronic kidney disease, unspecified; F17.210 Nicotine dependence, cigarettes, uncomplicated; N83.201 Unspecified ovarian cyst, right side; B96.20 Unspecified Escherichia coli [E. coli] as the cause of diseases classified elsewhere; Z88.6 Allergy status to analgesic agent; Z88.3 Allergy status to other anti-infective agents